=== PATIENT | female | born 1970 | race American Indian/Alaskan Native ===

== ENCOUNTER 2020-04-03 11:54 | Emergency (ER) | payer OTHER ==
[2020-04-03 12:01] VITALS: BP 165/84
[2020-04-03] MEDS ORDERED: valACYclovir 500 MG TAB PO ONE (13:26)
[2020-04-03] MEDS ORDERED: FLUORESCEIN 1 MG STRIP OP ONE (13:26)
[2020-04-03] MEDS ORDERED: predniSONE 20 MG TAB PO ONE (13:26)
[2020-04-03] MEDS ORDERED: TETRACAINE 0.5% OPHTH SOLN 4ML OU STA (13:27)
--- NOTE | 2020-04-03 13:32 | Emergency Department Report ---
ED Eye Problem HPI - General Chief complaint: Eye Problems Stated complaint: ALLERGY REACTION/WHEEZING Time Seen by Provider: 04/03/20 13:09 Source: patient Mode of arrival: Ambulatory Limitations: No Limitations - History of Present Illness Initial comments: 50 yr old female with a past medical history of asthma, renal failure on hemodialysis 3 days a week, and anemia presents to the ER today complaining of burning rash to her left forehead and around her eye as well is left eyeball redness. Patient states that her symptoms started with a rash to her left forehead about 2 days ago, since then it has gradually gotten worse and now involves her eye. She reports associated mild swelling to her left forehead and upper eyelid. She reports intermittent mild clear drainage from the eye but denies any mucopurulent drainage. She reports mild blurry vision to left eye (she only wear readers as needed ). She denies any photophobia, or eyeball pain or pain with movement of eye. She states she was concerned she was having allergic reaction to the iron infusion she had this morning. She denies any f/c or any other symptoms at this time. chief complaint: eye redness, other (Rash to forhead/around left eye) -: Sudden (2 days ago ) - Related Data Previous Rx's Medication Instructions Recorded Last Taken Type Ganciclovir [Zirgan 0.15%] 1 drop OP 5XD #10 gel..gram. 04/03/20 Unknown Rx Valacyclovir HCl [Valtrex] 1,000 mg PO TID #21 tablet 04/03/20 Unknown Rx predniSONE [Deltasone] 50 mg PO QDAY 4 Days #4 tab 04/03/20 Unknown Rx Allergies Allergy/AdvReac Type Severity Reaction Status Date / Time No Known Allergies Allergy Unverified 04/03/20 11:59 ED Review of Systems ROS: Stated complaint: ALLERGY REACTION/WHEEZING Other details as noted in HPI Comment: All other systems reviewed and negative Constitutional: chills Eyes: eye discharge, vision change, other (Left periorbital rash and swelling) ENT: denies: ear pain Respiratory: denies: cough, shortness of breath, wheezing Cardiovascular: denies: chest pain, palpitations Gastrointestinal: denies: abdominal pain, nausea, diarrhea Skin: rash, lesions Neurological: denies: headache, weakness, paresthesias Psychiatric: denies: anxiety, depression ED Past Medical Hx - Past Medical History Previous Medical History?: Yes Hx Renal Disease: Yes Additional medical history: Breast CA - Surgical History Past Surgical History?: Yes Additional Surgical History: Double mastectomy - Social History Smoking Status: Never Smoker Substance Use Type: None - Medications Home Medications: Home Medications Medication Instructions Recorded Confirmed Last Taken Type Ganciclovir [Zirgan 0.15%] 1 drop OP 5XD #10 gel..gram. 04/03/20 Unknown Rx Valacyclovir HCl [Valtrex] 1,000 mg PO TID #21 tablet 04/03/20 Unknown Rx predniSONE [Deltasone] 50 mg PO QDAY 4 Days #4 tab 04/03/20 Unknown Rx ED Physical Exam - General Limitations: No Limitations General appearance: alert, in no apparent distress - Head Head exam: Present: atraumatic, normocephalic, normal inspection - Eye Eye exam: Present: PERRL, EOMI, conjunctival injection (Left), other (mild swelling to left eyelid/suprarobital area secondary to herpetic zoster rash thats extending from left forehead; No signs of cellulitis.). Absent: periorbital tenderness Pupils: Present: normal accommodation, other (Vargas lamp --fluorescein exam - left eye - 2 tiny punctate areas noted at 12 oclock of cornea; No hyphema, hemorrage; no cell flare) - Expanded Eye Exam Expanded Sclera/Conjunctival: Injection: Left Posterior chamber: Deferred: Left Visual acuity (R) = 20/: 20 Visual acuity (L) = 20/: 25 With correction: No - Neck Neck exam: Present: normal inspection. Absent: meningismus - Respiratory Respiratory exam: Absent: respiratory distress - Cardiovascular Cardiovascular Exam: Present: regular rate - Neurological Exam Neurological exam: Present: alert, oriented X3, CN II-XII intact - Skin Skin exam: Present: other (versicular rash noted left forehead, bridge of nose and upper lid along V1 dermatome; no rash to tip of nose ) ED Course Vital Signs 04/03/20 12:00 Temperature 99.6 F Pulse Rate 84 Respiratory 18 Rate Blood Pressure 165/84 O2 Sat by Pulse 100 Oximetry ED Medical Decision Making - Medical Decision Making 1410 -- Pt with shingles rash to left forehead along V1 dermatome involving left upper lids/bridge of nose (nothing on tip of nose) and there is concern for left cornea involved given vargas lamp exam. Discussed case with Dr Sexton (ophthamologist), he recommends valtrex 1000mg TID and Zirgen eye drops 5x per day and to have pt f.u in office monday in office. Discussed diagnosis, tx plan and ophthamologist recommendations with patient. She understands to f/u monday. Pt stable at time of d/c. Critical care attestation.: If time is entered above; I have spent that time in minutes in the direct care of this critically ill patient, excluding procedure time. ED Disposition Clinical Impression: Herpes zoster, Herpes zoster conjunctivitis Disposition: TO HOME OR SELFCARE Is pt being admited?: No Does the pt Need Aspirin: No Condition: Stable Instructions: Herpes Zoster (ED), Keratitis (ED) Additional Instructions: It is very important that you take medications as prescribed. It is important to follow up with Dr Sexton on monday. Return to ED if worse. Prescriptions: predniSONE [Deltasone] 50 mg PO QDAY 4 Days #4 tab Valacyclovir HCl [Valtrex] 1,000 mg PO TID #21 tablet Ganciclovir [Zirgan 0.15%] 1 drop OP 5XD #10 gel..gram. Referrals: PRIMARY CARE, [Primary Care Provider] - 3-5 Days CASPER SEXTON MD [Staff Physician] - 04/06/20 Time of Disposition: 14:16
== END 2020-04-03 14:50 | disposition home or self-care (01) ==
LOC: ED 11:54
DX: B02.31 Zoster conjunctivitis (principal); J45.909 Unspecified asthma, uncomplicated; N18.6 End stage renal disease; Z98.890 Other specified postprocedural states; Z79.899 Other long term (current) drug therapy; Z99.2 Dependence on renal dialysis
CPT/HCPCS: 99283; J7512

== ENCOUNTER 2020-09-03 19:00 | Emergency (ER) | payer SELFPAY | END 2020-09-03 21:25 | disposition left against medical advice (07) | LOC: ED 19:00 | DX: R06.02 Shortness of breath (principal); Z53.21 Procedure and treatment not carried out due to patient leaving prior to being seen by health care provider ==

== ENCOUNTER 2021-02-25 08:00 | Inpatient (IN) | payer OTHER, MEDICARE ==
[2021-02-25] MEDS ORDERED: ACETAMINOPHEN 500 MG TAB PO ONE ×2 (12:19→20:15)
--- NOTE | 2021-02-25 12:38 | Emergency Department Report ---
HPI - General Chief Complaint: Fall Time Seen by Provider: 02/25/21 11:57 - HPI HPI: 50-year-old female with history of breast cancer and ESRD on HD / presents complaining primarily of left knee pain since she suffered a fall down her stairs last night. The patient states that she was at the top of her steps when she lost her balance going down them and tumbled down one flight of stairs. She denies any significant trauma to her head and denies losing consciousness. She experienced immediate pain in her left knee and was unable to bear weight. She applied ice and has been taking Tylenol for the pain. However, today she was still unable to bear weight and so she decided to come in for further evaluation. The swelling has decreased from yesterday but is still significantly swollen according to her. Other than the left knee swelling and pain, she has pain in her right third and fourth toes. She denies any pain or injury to the head, neck, back, chest, arms, or anywhere else. She denies any headache, vision change, back pain, chest pain, shortness of breath, abdominal pain, nausea/vomiting, focal weakness, sensory changes, or any other complaints. Her last dialysis session was on Monday and she did not go today because she decided to come to the emergency department. ED Past Medical Hx - Past Medical History Previous Medical History?: Yes Hx Renal Disease: Yes (HD on ) Additional medical history: Breast CA - Surgical History Past Surgical History?: Yes Additional Surgical History: Double mastectomy - Social History Smoking Status: Never Smoker Substance Use Type: None - Medications Home Medications: Home Medications Medication Instructions Recorded Confirmed Last Taken Type Ganciclovir [Zirgan 0.15%] 1 drop OP 5XD #10 gel..gram. 04/03/20 02/26/21 02/16/21 Rx Valacyclovir HCl [Valtrex] 1,000 mg PO TID #21 tablet 04/03/20 02/26/21 02/17/21 Rx predniSONE [Deltasone] 50 mg PO QDAY 4 Days #4 tab 04/03/20 02/26/21 02/23/21 Rx ED Review of Systems ROS: Stated complaint: FALL/LT FOOT INJURY Other details as noted in HPI Constitutional: denies: chills, fever Eyes: denies: eye pain, vision change ENT: denies: throat pain, congestion Respiratory: denies: cough, shortness of breath Cardiovascular: denies: chest pain, palpitations, edema, syncope Gastrointestinal: denies: abdominal pain, nausea, vomiting Musculoskeletal: joint swelling. denies: back pain, myalgia Skin: denies: rash Neurological: denies: headache, weakness, numbness, paresthesias, confusion Physical Exam - Physical Exam Vital Signs: Vital Signs 02/25/21 09:20 Temperature 98.7 F Pulse Rate 79 Respiratory 15 Rate Blood Pressure 127/71 [Right] O2 Sat by Pulse 100 Oximetry Physical Exam: GENERAL: Well developed and well nourished. No acute distress HEENT: Normocephalic. No obvious signs of trauma. Moist mucous membranes. EYES: Extraocular movements are intact. Pupils are equal round and reactive to light bilaterally NECK: Supple. Trachea is midline. FROM is intact. No mid-spinal tenderness LUNGS: Nonlabored breathing. Equal chest rise bilaterally. Clear to auscultation bilaterally. HEART/CARDIOVASCULAR: Regular rate and rhythm. No murmurs or rubs. VASCULAR: 2+ peripheral pulses. Cap refill < 2 seconds ABDOMEN: Abdomen is soft and nondistended. There is no significant tenderness, guarding or rebound. SKIN: Skin is warm and dry NEURO: Patient is awake, alert, and oriented. manager helpdesk II-XII grossly intact. No focal deficits. Normal motor and sensory exam throughout (although strangth at knee cannot be assessed due to pain, she has normal strength distally). Normal speech. MUSCULOSKELETAL: There is obvious swelling over the left knee which obscures boundaries of the patella. There is no significant varus/valgus or anterior/posterior laxity. Unable to assess range of motion due to significant pain. There is no tenderness of the hips, chest wall, proximal femurs, tib- fib's, ankles, or feet with the exception of tenderness of the right third and fourth toes. Otherwise no tenderness and normal range of motion throughout. BACK/SPINE: No midline tenderness or step-offs of the C/T/L spine. No costovertebral angle tenderness. ED Course Vital Signs 02/25/21 09:20 Temperature 98.7 F Pulse Rate 79 Respiratory 15 Rate Blood Pressure 127/71 [Right] O2 Sat by Pulse 100 Oximetry ED Medical Decision Making - Lab Data Result diagrams: 02/25/21 15:05 02/25/21 15:05 Lab Results 02/25/21 02/25/21 02/25/21 Range/Units 15:05 15:05 15:05 WBC 8.6 (4.5-11.0) K/mm3 RBC 3.41 L (3.65-5.03) M/mm3 Hgb 10.3 (10.1-14.3) gm/dl Hct 32.4 (30.3-42.9) % MCV 95 (79-97) fl MCH 30 (28-32) pg MCHC 32 (30-34) % RDW 16.2 H (13.2-15.2) % Plt Count 129 L (140-440) K/mm3 Lymph % (Auto) 19.0 (13.4-35.0) % [place] % (Auto) 12.8 H (0.0-7.3) % Eos % (Auto) 4.0 (0.0-4.3) % Baso % (Auto) 0.5 (0.0-1.8) % Lymph # (Auto) 1.6 (1.2-5.4) K/mm3 [place] # (Auto) 1.1 H (0.0-0.8) K/mm3 Eos # (Auto) 0.3 (0.0-0.4) K/mm3 Baso # (Auto) 0.0 (0.0-0.1) K/mm3 Seg Neutrophils % 63.7 (40.0-70.0) % Seg Neutrophils # 5.4 (1.8-7.7) K/mm3 PT 14.2 (12.2-14.9) Sec. INR 1.05 (0.87-1.13) APTT 25.7 (24.2-36.6) Sec. Sodium 141 (137-145) mmol/L Potassium 5.9 H (3.6-5.0) mmol/L Chloride 101.7 (98-107) mmol/L Carbon Dioxide 28 (22-30) mmol/L Anion Gap 17 mmol/L BUN 63 H (7-17) mg/dL Creatinine 11.8 H (0.6-1.2) mg/dL Estimated GFR 4 ml/min BUN/Creatinine Ratio 5 % Glucose 90 (65-100) mg/dL Calcium 9.6 (8.4-10.2) mg/dL Total Bilirubin 0.40 (0.1-1.2) mg/dL Direct Bilirubin < 0.2 (0-0.2) mg/dL Indirect Bilirubin 0.2 mg/dL AST 18 (5-40) units/L ALT 11 (7-56) units/L Alkaline Phosphatase 142 H (35-129) units/L Total Protein 7.3 (6.3-8.2) g/dL Albumin 4.1 (3.9-5) g/dL Albumin/Globulin Ratio 1.3 % - EKG Data -: EKG Interpreted by Ct - EKG Data 02/25/21 20:54 Normal sinus rhythm. Normal axis. First-degree AV block with prolonged MO interval. Otherwise normal intervals. No ectopy. No significant ST segment or T wave abnormalities. No peaked T waves. - Radiology Data XR tibia fibula 2V LT INDICATION / CLINICAL INFORMATION: trauma. COMPARISON: None available. FINDINGS: BONES/JOINT(S): No acute fracture or subluxation. No significant degenerative changes. SOFT TISSUES: No significant abnormality. ADDITIONAL FINDINGS: None. Signer Name: Edvin Suárez MD Signed: 02/25/2021 2:40 PM Workstation Name: [id number] XR knee 3V LT INDICATION / CLINICAL INFORMATION: trauma. COMPARISON: None available. FINDINGS: BONES/JOINT(S): There is a large joint effusion. There is a questionable nondisplaced fracture of the lateral aspect of lateral tibial plateau only well seen on the oblique projection. SOFT TISSUES: No significant abnormality. ADDITIONAL FINDINGS: None. Recommendation: If the patient is unable to bear weight, further evaluation with CT or MRI of the knee is recommended. Signer Name: Edvin Suárez MD Signed: 02/25/2021 2:41 PM Workstation Name: [id number] XR hip 2-3V LT INDICATION / CLINICAL INFORMATION: trauma. COMPARISON: None available. FINDINGS: BONES/JOINT(S): No acute fracture or subluxation. No significant degenerative changes. SOFT TISSUES: No significant abnormality. ADDITIONAL FINDINGS: None. Signer Name: Edvin Suárez MD Signed: 02/25/2021 2:36 PM Workstation Name: [id number] XR foot 2V RT INDICATION / CLINICAL INFORMATION: trauma. COMPARISON: None available. FINDINGS: BONES/JOINT(S): No acute fracture or subluxation. Mild DJD in the first MTP joint. SOFT TISSUES: No significant abnormality. ADDITIONAL FINDINGS: None. Signer Name: Edvin Suárez MD Signed: 02/25/2021 2:41 PM Workstation Name: [id number] XR femur 2+V LT INDICATION / CLINICAL INFORMATION: trauma. COMPARISON: None available. FINDINGS: BONES/JOINT(S): No acute fracture or subluxation. No sig nificant degenerative changes. SOFT TISSUES: No significant abnormality. ADDITIONAL FINDINGS: None. Signer Name: Edvin Suárez MD Signed: 02/25/2021 2:37 PM Workstation Name: [id number] CT lower extremity LT wo con INDICATION: possible tibilal plateau fracture on x-ray. TECHNIQUE: All CT scans at this location are performed using the following dose modulation technique: Automated exposure control. COMPARISON: None available. FINDINGS: There is a minimally displaced fracture through the posterior lateral tibial plateau. In addition, there is fracture involving the tibial spine (intercondylar eminence) which is mildly comminuted. No additional fractures are seen. There is a lipohemarthrosis. There is mild subcutaneous edema. There is mild tricompartmental degenerative change. IMPRESSION: 1. Proximal tibial fractures as above. There is associated lipohemarthrosis. This fracture pattern could be seen in the setting of ACL avulsion injury. 2. Soft tissue swelling medially is concerning for MCL injury. Signer Name: Eliecer Leyva MD Signed: 02/25/2021 5:46 PM Workstation Name: [id number] - Medical Decision Making 50-year-old female with ESRD on HD / presents complaining of left knee pain and inability to bear weight on the left lower extremity after a trip and fall down a flight of stairs. Patient did not hit her head or lose consciousness. She had immediate pain and swelling to her left knee and was unable to bear weight. She applied ice and the swelling decreased but is still unable to bear weight so she decided to come in today. She missed her dialysis session today to come to the emergency room. she is afebrile and with normal vital signs. She is in no acute distress. There are no signs of head trauma. She has no mid sp inal tenderness of the C/T/L-spine. She has a nonfocal neurologic exam. Musculoskeletal exam is significant for significant swelling over the left knee and inability to range or bear weight at the knee due to pain. Neurovascularly intact distally. She also has tenderness of the right third and fourth toes. We will go ahead and send basic labs in case the patient needs to get dialyzed here. We will also obtain plain film x-rays of the left hip, left femur, left knee, left tib-fib as well as the right foot. We will give Tylenol for pain and reassess. The patient was offered something stronger for pain but refused. Repeat assessment at 2:38 PM, the patient is sleeping in the bed. When I came back shortly after to check on her she was awake and stated that her pain is controlled and she does not want any more pain medication. X-ray of the right foot reveals no obvious fractures. X-rays of the left hip, femur, and tib-fib reveal no acute abnormalities. However, on the x-ray of the knee there is concern for a left lateral tibial plateau fracture. CT is recommended for further elucidation which I have ordered. Knee immobilizer has been ordered. The patient's labs have returned and reveal no significant leukocytosis or anemia. However, she is noted to have creatinine of 11.8, BUN of 63, and potassium of 5.9. Given that the patient missed her dialysis I will place a ca ll to the on-call frame opener. At 5:30 PM I spoke with Dr. Nicholas over the phone regarding the case. We discussed details including the patient's elevated potassium and he recommended giving Kayexalate with the plan to have her dialyzed in the morning. While awaiting the results of the CT scan, given that the patient has now been in the emergency department for 10 hours, she is unable to bear weight, likely has a fracture, and will require dialysis given her elevated potassium, I spoke with him regarding admission. He accepts the patient for admission understands that he will need to follow-up the CT scan and consult orthopedic surgery. He also says that he will take care of arranging her dialysis. Dr. Davis has assumed care. Critical Care Time: Yes Critical care time in (mins) excluding proc time.: 35 Critical care attestation.: If time is entered above; I have spent that time in minutes in the direct care of this critically ill patient, excluding procedure time. Critical care time was spent in the assessment/evaluation, work-up, and management of complex fracture as well as significant electrolyte abnormalities including elevated potassium requiring administration of Kayexalate, as well as consultation with multiple specialists and frequent reevaluation and assessment ED Disposition Clinical Impression: Left medial tibial plateau fracture, ESRD (end stage renal disease), Hyperkalemia, Fracture of left tibial spine, Hemarthrosis Disposition: OP ADMIT IP TO THIS HOSP Is pt being admited?: Yes Condition: Stable
[2021-02-25 15:31] LABS: Basophils % (Auto) 0.5 % (0.0-1.8); Eosinophils # (Auto) 0.3 K/mm3 (0.0-0.4); Hematocrit 32.4 % (30.3-42.9); Hemoglobin 10.3 gm/dl (10.1-14.3); Lymphocytes # (Auto) 1.6 K/mm3 (1.2-5.4); Mean Corpuscular HGB Conc 32 % (30-34); Mean Corpuscular Volume 95 fl (79-97); Monocytes # (Auto) 1.1 K/mm3 (0.0-0.8); Monocytes % (Auto) 12.8 % (0.0-7.3); Platelet Count 129 K/mm3 (140-440); Red Blood Count 3.41 M/mm3 (3.65-5.03); Red Cell Distribution Width 16.2 % (13.2-15.2)
[2021-02-25 15:39] LABS: INR 1.05 (0.87-1.13)
[2021-02-25 15:40] LABS: Partial Thromboplastin Time 25.7 Sec. (24.2-36.6)
--- NOTE | 2021-02-25 15:41 | XRay Report ---
XR femur 2+V LT INDICATION / CLINICAL INFORMATION: trauma. COMPARISON: None available. FINDINGS: BONES/JOINT(S): No acute fracture or subluxation. No significant degenerative changes. SOFT TISSUES: No significant abnormality. ADDITIONAL FINDINGS: None. Signer Name: Edvin Suárez MD Signed: 02/25/2021 3:37 PM Workstation Name: [id number]
--- NOTE | 2021-02-25 15:41 | XRay Report ---
XR hip 2-3V LT INDICATION / CLINICAL INFORMATION: trauma. COMPARISON: None available. FINDINGS: BONES/JOINT(S): No acute fracture or subluxation. No significant degenerative changes. SOFT TISSUES: No significant abnormality. ADDITIONAL FINDINGS: None. Signer Name: Edvin Suárez MD Signed: 02/25/2021 3:36 PM Workstation Name: [id number]
--- NOTE | 2021-02-25 15:44 | XRay Report ---
XR tibia fibula 2V LT INDICATION / CLINICAL INFORMATION: trauma. COMPARISON: None available. FINDINGS: BONES/JOINT(S): No acute fracture or subluxation. No significant degenerative changes. SOFT TISSUES: No significant abnormality. ADDITIONAL FINDINGS: None. Signer Name: Edvin Suárez MD Signed: 02/25/2021 3:40 PM Workstation Name: [id number]
--- NOTE | 2021-02-25 15:45 | XRay Report ---
XR foot 2V RT INDICATION / CLINICAL INFORMATION: trauma. COMPARISON: None available. FINDINGS: BONES/JOINT(S): No acute fracture or subluxation. Mild DJD in the first MTP joint. SOFT TISSUES: No significant abnormality. ADDITIONAL FINDINGS: None. Signer Name: Edvin Suárez MD Signed: 02/25/2021 3:41 PM Workstation Name: [id number]
--- NOTE | 2021-02-25 15:45 | XRay Report ---
XR knee 3V LT INDICATION / CLINICAL INFORMATION: trauma. COMPARISON: None available. FINDINGS: BONES/JOINT(S): There is a large joint effusion. There is a questionable nondisplaced fracture of the lateral aspect of lateral tibial plateau only well seen on the oblique projection. SOFT TISSUES: No significant abnormality. ADDITIONAL FINDINGS: None. Recommendation: If the patient is unable to bear weight, further evaluation with CT or MRI of the kne e is recommended. Signer Name: Edvin Suárez MD Signed: 02/25/2021 3:41 PM Workstation Name: [id number]
[2021-02-25 16:06] LABS: Alanine Aminotransferase 11 units/L (7-56); Albumin 4.1 g/dL (3.9-5); Blood Urea Nitrogen 63 mg/dL (7-17); Calcium 9.6 mg/dL (8.4-10.2); Hemolysis Index 6
[2021-02-25 16:08] LABS: BUN/Creatinine Ratio 5; Bilirubin,Direct < 0.2 mg/dL (0-0.2)
[2021-02-25] MEDS ORDERED: SODIUM POLYSTYRENE 15 GM/60 ML ORAL LIQD PO ONE (17:37)
--- NOTE | 2021-02-25 18:50 | Cat Scan Report ---
CT lower extremity LT wo con INDICATION: possible tibilal plateau fracture on x-ray. TECHNIQUE: All CT scans at this location are performed using the following dose modulation technique: Automated exposure control. COMPARISON: None available. FINDINGS: There is a minimally displaced fracture through the posterior lateral tibial plateau. In addition, th ere is fracture involving the tibial spine (intercondylar eminence) which is mildly comminuted. No ad ditional fractures are seen. There is a lipohemarthrosis. There is mild subcutaneous edema. There is mild tricompartmental degenerative change. IMPRESSION: 1. Proximal tibial fractures as above. There is associated lipohemarthrosis. This fracture pattern co uld be seen in the setting of ACL avulsion injury. 2. Soft tissue swelling medially is concerning for MCL injury. Signer Name: Eliecer Leyva MD Signed: 02/25/2021 6:46 PM Workstation Name: [id number]
--- NOTE | 2021-02-25 23:10 | History and Physical Report ---
History of Present Illness Date of examination: 02/25/21 Date of admission: 02/25/21 18:23 Chief complaint: Severe left knee pain since yesterday History of present illness: 50-year-old female with history of end-stage renal disease on hemodialysis Monday and Saturdays had a fall last night while getting down the stairs. She fell about 10 stairs. Patient notes severe left knee pain and swelling. Pain is about 8 on a scale of 1-10. Decreased range of motion. No head concussion. No loss of consciousness. No shortness of breath. No fever or chills. Patient also has a history of breast cancer and bilateral mastectomy. - Past Medical History Previous Medical History?: Yes Hx Renal Disease: Yes (HD on ) Additional medical history: Breast CA - Surgical History Past Surgical History?: Yes Additional Surgical History: Double mastectomy - Social History Smoking Status: Never Smoker Substance Use Type: None - Medications Home Medications: Home Medications Medication Instructions Recorded Confirmed Last Taken Type Ganciclovir [Zirgan 0.15%] 1 drop OP 5XD #10 gel..gram. 04/03/20 Unknown Rx Valacyclovir HCl [Valtrex] 1,000 mg PO TID #21 tablet 04/03/20 Unknown Rx predniSONE [Deltasone] 50 mg PO QDAY 4 Days #4 tab 04/03/20 Unknown Rx Review of Systems ROS: Stated complaint: FALL/LT FOOT INJURY Other details as noted in HPI Constitutional: denies: chills, fever Eyes: denies: eye pain, vision change ENT: denies: throat pain, congestion Respiratory: denies: cough, shortness of breath Cardiovascular: denies: chest pain, palpitations, edema, syncope Gastrointestinal: denies: abdominal pain, nausea, vomiting Musculoskeletal: joint swelling. denies: back pain, myalgia Skin: denies: rash Neurological: denies: headache, weakness, numbness, paresthesias, confusion Medications and Allergies Allergies Allergy/AdvReac Type Severity Reaction Status Date / Time No Known Allergies Allergy Unverified 04/03/20 11:59 Home Medications Medication Instructions Recorded Confirmed Last Taken Type Ganciclovir [Zirgan 0.15%] 1 drop OP 5XD #10 gel..gram. 04/03/20 02/26/21 02/16/21 Rx Valacyclovir HCl [Valtrex] 1,000 mg PO TID #21 tablet 04/03/20 02/26/21 02/17/21 Rx predniSONE [Deltasone] 50 mg PO QDAY 4 Days #4 tab 04/03/20 02/26/21 02/23/21 Rx Exam - Constitutional Vitals: Temp Pulse Resp BP Pulse Ox 98.7 F 69 16 135/68 99 02/25/21 22:15 02/25/21 22:15 02/25/21 22:15 02/25/21 22:15 02/25/21 22:15 General appearance: Present: no acute distress, well-nourished - EENT Eyes: Present: PERRL ENT: hearing intact, clear oral mucosa - Neck Neck: Present: supple, normal ROM - Respiratory Respiratory effort: normal Respiratory: bilateral: CTA - Cardiovascular Heart rate: 78 Rhythm: regular Heart Sounds: Present: S1 & S2. Absent: rub, click - Extremities Extremities: pulses symmetrical, No edema, abnormal (Left knee swollen and decreased range of motion) Extremity abnormal: other (Left knee swollen and decreased range of motion) Peripheral Pulses: within normal limits - Abdominal General gastrointestinal: Present: soft, non-tender, non-distended, normal bowel sounds Female genitourinary: Present: normal - Integumentary Integumentary: Present: clear, warm, dry - Musculoskeletal Musculoskeletal: gait normal, strength equal bilaterally - Psychiatric Psychiatric: appropriate mood/affect, intact judgment & insight - Neurologic Neurologic: CNII-XII intact, moves all extremities Results - Labs CBC & Chem 7: 02/26/21 07:22 02/26/21 07:22 Labs: Laboratory Last Values WBC 8.6 K/mm3 (4.5-11.0) 02/25/21 15:05 RBC 3.41 M/mm3 (3.65-5.03) L 02/25/21 15:05 Hgb 10.3 gm/dl (10.1-14.3) 02/25/21 15:05 Hct 32.4 % (30.3-42.9) 02/25/21 15:05 MCV 95 fl (79-97) 02/25/21 15:05 MCH 30 pg (28-32) 02/25/21 15:05 MCHC 32 % (30-34) 02/25/21 15:05 RDW 16.2 % (13.2-15.2) H 02/25/21 15:05 Plt Count 129 K/mm3 (140-440) L 02/25/21 15:05 Lymph % (Auto) 19.0 % (13.4-35.0) 02/25/21 15:05 [place] % (Auto) 12.8 % (0.0-7.3) H 02/25/21 15:05 Eos % (Auto) 4.0 % (0.0-4.3) 02/25/21 15:05 Baso % (Auto) 0.5 % (0.0-1.8) 02/25/21 15:05 Lymph # (Auto) 1.6 K/mm3 (1.2-5.4) 02/25/21 15:05 [place] # (Auto) 1.1 K/mm3 (0.0-0.8) H 02/25/21 15:05 Eos # (Auto) 0.3 K/mm3 (0.0-0.4) 02/25/21 15:05 Baso # (Auto) 0.0 K/mm3 (0.0-0.1) 02/25/21 15:05 Seg Neutrophils % 63.7 % (40.0-70.0) 02/25/21 15:05 Seg Neutrophils # 5.4 K/mm3 (1.8-7.7) 02/25/21 15:05 PT 14.2 Sec. (12.2-14.9) 02/25/21 15:05 INR 1.05 (0.87-1.13) 02/25/21 15:05 APTT 25.7 Sec. (24.2-36.6) 02/25/21 15:05 Sodium 141 mmol/L (137-145) 02/25/21 15:05 Potassium 5.9 mmol/L (3.6-5.0) H 02/25/21 15:05 Chloride 101.7 mmol/L (98-107) 02/25/21 15:05 Carbon Dioxide 28 mmol/L (22-30) 02/25/21 15:05 Anion Gap 17 mmol/L 02/25/21 15:05 BUN 63 mg/dL (7-17) H 02/25/21 15:05 Creatinine 11.8 mg/dL (0.6-1.2) H 02/25/21 15:05 Estimated GFR 4 ml/min 02/25/21 15:05 BUN/Creatinine Ratio 5 % 02/25/21 15:05 Glucose 90 mg/dL (65-100) 02/25/21 15:05 Calcium 9.6 mg/dL (8.4-10.2) 02/25/21 15:05 Total Bilirubin 0.40 mg/dL (0.1-1.2) 02/25/21 15:05 Direct Bilirubin < 0.2 mg/dL (0-0.2) 02/25/21 15:05 Indirect Bilirubin 0.2 mg/dL 02/25/21 15:05 AST 18 units/L (5-40) 02/25/21 15:05 ALT 11 units/L (7-56) 02/25/21 15:05 Alkaline Phosphatase 142 units/L (35-129) H 02/25/21 15:05 Total Protein 7.3 g/dL (6.3-8.2) 02/25/21 15:05 Albumin 4.1 g/dL (3.9-5) 02/25/21 15:05 Albumin/Globulin Ratio 1.3 % 02/25/21 15:05 - Imaging and Cardiology Imaging and Cardiology: Lower extremities CAT scan Proximal tibial fracture. Minimally displaced fracture through the posterior lateral tibial plateau. In addition there is fracture involving the intercondylar eminence. Which is mildly comminuted. No additional fractures are seen. Foot x-ray femur x-ray and hip x-ray are normal. Knee x-ray there is a large joint effusion. There is a questionable nondisplace d fracture of the lateral aspect of the lateral tibial plateau only well seen on the oblique projection. CT scan knee is recommended. Assessment and Plan Advance Directives: Yes (Full code) VTE prophylaxis?: Chemical Plan of care discussed with patient/family: Yes - Patient Problems (1) Left medial tibial plateau fracture Current Visit: Yes Status: Acute Qualifiers: Encounter type: initial encounter Fracture type: closed Qualified Code(s): S82.132A - Displaced fracture of medial condyle of left tibia, initial encounter for closed fracture Plan to address problem: Orthopedics surgery consult requested by Dr. Salas (2) End stage renal disease on dialysis Current Visit: Yes Status: Chronic Plan to address problem: Continue hemodialysis as per schedule (3) Hyperkalemia Current Visit: Yes Status: Acute Plan to address problem: Hyperkalemia treated in the emergency room. Recheck potassium level. (4) DVT prophylaxis Current Visit: Yes Status: Acute Plan to address problem: On heparin and GI prophylaxis
[2021-02-25] MEDS ORDERED: ACETAMINOPHEN 325 MG TAB PO PRN (23:14)
[2021-02-25] MEDS ORDERED: METOCLOPRAMIDE 10 MG/2 ML INJ IV PRN ×2 (23:14→23:20)
[2021-02-25] MEDS ORDERED: ONDANSETRON 4 MG/2 ML INJ IV PRN (23:14)
[2021-02-25] MEDS ORDERED: CALCIUM GLUCONATE 2,000 MG in SODIUM CHLORIDE 0.9% 100 ML IV ONE (23:19)
[2021-02-26] MEDS: FAMOTIDINE 10 MG TAB PO SCH ×3 (00:17→22:06)
[2021-02-26] MEDS: oxyCODONE /ACETAMINOPHEN 5-325MG TAB PO PRN ×2 (04:51→22:06)
[2021-02-26 07:38] LABS: Basophils % (Auto) 0.6 % (0.0-1.8); Eosinophils # (Auto) 0.5 K/mm3 (0.0-0.4); Eosinophils % (Auto) 8.2 % (0.0-4.3); Hematocrit 30.1 % (30.3-42.9); Hemoglobin 9.7 gm/dl (10.1-14.3); Lymphocytes # (Auto) 1.8 K/mm3 (1.2-5.4); Lymphocytes % (Auto) 27.3 % (13.4-35.0); Mean Corpuscular HGB Conc 32 % (30-34); Mean Corpuscular Volume 94 fl (79-97); Monocytes # (Auto) 0.7 K/mm3 (0.0-0.8); Monocytes % (Auto) 10.6 % (0.0-7.3); Platelet Count 123 K/mm3 (140-440); Red Blood Count 3.21 M/mm3 (3.65-5.03); Red Cell Distribution Width 15.6 % (13.2-15.2)
[2021-02-26 07:56] LABS: Albumin 3.6 g/dL (3.9-5); Calcium 9.3 mg/dL (8.4-10.2)
--- NOTE | 2021-02-26 09:31 | Consultation ---
History of Present Illness - Reason for Consult Consult date: 02/26/21 end stage renal disease - History of Present Illness This is a 50 year-old woman with ESRD who presents for mechanical fall and subsequent injury Patient usually dialyzes at [facility] with Dr. Calderón. Last HD 02/23, missed 02/25 due to hospitalization. Denies any recent issues with HD, including dizziness, lightheadedness, cramping, chest pain on HD. Currently, patient denies any issues including dyspnea, edema, access issues, nausea, vomiting, headaches. Past History Past Medical History: cancer, ESRD Past Surgical History: mastectomy Social history: no significant social history Family history: no significant family history Medications and Allergies Allergies Allergy/AdvReac Type Severity Reaction Status Date / Time No Known Allergies Allergy Unverified 04/03/20 11:59 Home Medications Medication Instructions Recorded Confirmed Last Taken Type Ganciclovir [Zirgan 0.15%] 1 drop OP 5XD #10 gel..gram. 04/03/20 02/26/21 02/16/21 Rx Valacyclovir HCl [Valtrex] 1,000 mg PO TID #21 tablet 04/03/20 02/26/21 02/17/21 Rx predniSONE [Deltasone] 50 mg PO QDAY 4 Days #4 tab 04/03/20 02/26/21 02/23/21 Rx Active Meds: Active Medications Acetaminophen (Acetaminophen 325 Mg Tab) 650 mg PO Q4H PRN PRN Reason: Pain MILD(1-3)/Fever >100.5/GUNDERSON Last Admin: 02/26/21 01:36 Dose: 650 mg Documented by: Famotidine (Famotidine 10 Mg Tab) 10 mg PO BID NEY Last Admin: 02/26/21 00:17 Dose: 10 mg Documented by: Heparin Sodium (Porcine) (Heparin 5,000 Unit/1 Ml Vial) 5,000 unit SUB-Q Q12HR [facility] Hydromorphone HCl (Hydromorphone 1 Mg/1 Ml Inj) 0.5 mg IV Q3H PRN PRN Reason: Pain , Severe (7-10) Metoclopramide HCl (Metoclopramide 10 Mg/2 Ml Inj) 2.5 mg IV Q6H PRN PRN Reason: Nausea And Vomiting Ondansetron HCl (Ondansetron 4 Mg/2 Ml Inj) 4 mg IV Q3H PRN PRN Reason: Nausea And Vomiting Oxycodone/Acetaminophen (Oxycodone /Acetaminophen 5-325mg Tab) 1 tab PO Q6H PRN PRN Reason: Pain, Moderate (4-6) Last Admin: 02/26/21 04:51 Dose: 1 tab Documented by: Sodium Chloride (Sodium Chloride 0.9% 10 Ml Flush Syringe) 10 ml IV BID NEY Last Admin: 02/26/21 01:17 Dose: 10 ml Documented by: Sodium Chloride (Sodium Chloride 0.9% 10 Ml Flush Syringe) 10 ml IV PRN PRN PRN Reason: LINE FLUSH Review of Systems All systems: negative (as per HPI) Exam - Vital Signs Vital signs: Vital Signs Temp Pulse Resp BP Pulse Ox 98.7 F 79 15 127/71 100 02/25/21 09:20 02/25/21 09:20 02/25/21 09:20 02/25/21 09:20 02/25/21 09:20 - Physical Exam Narrative exam: Constitutional: no acute distress Head: NC/AT Neck: supple Lungs: clear to auscultation CV: RRR, no M/R/G Abdomen: soft, non-tender, bowel sounds present Back: nontender Extremities: no edema, pulses WNL Skin: intact Neuro: no focal deficits, alert and oriented x4 Results - Lab Results 02/26/21 07:22 02/26/21 07:22 Most recent lab results Calcium 9.3 mg/dL (8.4-10.2) 02/26/21 07:22 Assessment and Plan This is a 50 year old woman who presents with mechanical fall and left tibial fracture # ESRD: no indication for HD today per lytes, volume per exam; K medically managed overnight. Will plan for HD per outpatient // starting tomorrow - daily labs - renally dose meds - avoid nephrotoxins - renal diet - verbal consent obtained for HD # Anemia: last hemoglobin ~10 at goal for ESKD, no immediate needs for ESAs # HTN: UF as tolerated. BP at goal with euvolemia on exam # Secondary Hyperparathyroidism: continue home binders as needed # Tibial Fracture: ortho consulted
[2021-02-26] MEDS: HYDROmorphone 1 MG/1 ML INJ IV PRN ×2 (09:34→16:49)
[2021-02-26] MEDS: HEPARIN 5,000 UNIT/1 ML VIAL SUB-Q SCH ×2 (09:38→22:06)
[2021-02-26] MEDS ORDERED: SODIUM CHLORIDE 0.9% 100 ML IV PRN (10:00)
--- NOTE | 2021-02-26 10:18 | Electrocardiograph Report ---
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
--- NOTE | 2021-02-26 15:57 | Consultation ---
History of Present Illness - HPI Consult date: 02/26/21 Consult reason: fracture History of present illness: 50-year-old female with history of end-stage renal disease on hemodialysis Monday and Saturdays had a fall last 02/25/21 while getting down the stairs. She fell about 10 stairs. Patient notes severe left knee pain and swelling. Plain x-rays done in the ED were interpreted as questionable fracture line patient then underwent a CT scan which showed nondisplaced fractures of the proximal tibia Past History Past Medical History: cancer, ESRD Past Surgical History: mastectomy Social history: no significant social history Family history: no significant family history Medications and Allergies Allergies Allergy/AdvReac Type Severity Reaction Status Date / Time No Known Allergies Allergy Unverified 04/03/20 11:59 Home Medications Medication Instructions Recorded Confirmed Last Taken Type Ganciclovir [Zirgan 0.15%] 1 drop OP 5XD #10 gel..gram. 04/03/20 02/26/21 02/16/21 Rx Acetaminophen [Acetaminophen TAB] 650 mg PO Q4H PRN tablet 02/27/21 Unknown Rx oxyCODONE /ACETAMINOPHEN [Percocet 1 tab PO Q6H PRN tablet 02/27/21 Unknown Rx 5/325 mg] oxyCODONE /ACETAMINOPHEN [Percocet 1 tab PO Q6HR PRN #12 tab 02/27/21 Unknown Rx 5/325] Active Meds: Active Medications Acetaminophen (Acetaminophen 325 Mg Tab) 650 mg PO Q4H PRN PRN Reason: Pain MILD(1-3)/Fever >100.5/GUN[place]ERSON Last Admin: 02/26/21 01:36 Dose: 650 mg Documented by: Famotidine (Famotidine 10 Mg Tab) 10 mg PO BID [facility] Last Admin: 02/26/21 09:38 Dose: 10 mg Documented by: Heparin Sodium (Porcine) (Heparin 5,000 Unit/1 Ml Vial) 5,000 unit SUB-Q Q12HR [facility] Last Admin: 02/26/21 09:38 Dose: 5,000 unit Documented by: Hydromorphone HCl (Hydromorphone 1 Mg/1 Ml Inj) 0.5 mg IV Q3H PRN PRN Reason: Pain , Severe (7-10) Last Admin: 02/26/21 09:34 Dose: 0.5 mg Documented by: Sodium Chloride (Nacl 0.9%) 100 mls @ 999 mls/hr IV LON PRN PRN Reason: Hypotension Metoclopramide HCl (Metoclopramide 10 Mg/2 Ml Inj) 2.5 mg IV Q6H PRN PRN Reason: Nausea And Vomiting Ondansetron HCl (Ondansetron 4 Mg/2 Ml Inj) 4 mg IV Q3H PRN PRN Reason: Nausea And Vomiting Oxycodone/Acetaminophen (Oxycodone /Acetaminophen 5-325mg Tab) 1 tab PO Q6H PRN PRN Reason: Pain, Moderate (4-6) Last Admin: 02/26/21 04:51 Dose: 1 tab Documented by: Sodium Chloride (Sodium Chloride 0.9% 10 Ml Flush Syringe) 10 ml IV BID NEY Last Admin: 02/26/21 11:06 Dose: 10 ml Documented by: Sodium Chloride (Sodium Chloride 0.9% 10 Ml Flush Syringe) 10 ml IV PRN PRN PRN Reason: LINE FLUSH Physical Examination - Physical exam Narrative exam: On physical examination significant musculoskeletal findings relates to the left lower extremity here she is noted to have some mild swelling was tenderness over the proximal tibia there is no obvious deformity distal neurovascular status was intact Eyes: PERRL ENT: Positive: clear oral mucosa Respiratory effort: normal Respiratory: bilateral: CTA Rhythm: regular Heart Sounds: Positive: S1 & S2 General gastrointestinal: Positive: soft, non-tender, non-distended, normal bowel sounds Integumentary: clear, warm, dry Neurologic: Positive: CNII-XII intact, moves all extremities, gait normal. Negative: focal deficits Assessment and Plan Nondisplaced left tibial plateau fracture Recommend conservative management patient to be weightbearing as tolerated with assistance from walker
--- NOTE | 2021-02-26 17:20 | Progress Note ---
Hospitalist Physical - Constitutional Vitals: Temp Pulse Resp BP Pulse Ox 98.8 F 69 16 147/98 99 02/26/21 15:26 02/26/21 15:26 02/26/21 15:26 02/26/21 15:26 02/26/21 15:26 General appearance: Present: no acute distress, well-nourished Results - Labs CBC & Chem 7: 02/26/21 07:22 02/26/21 07:22 Labs: Laboratory Last Values WBC 6.5 K/mm3 (4.5-11.0) 02/26/21 07:22 RBC 3.21 M/mm3 (3.65-5.03) L 02/26/21 07:22 Hgb 9.7 gm/dl (10.1-14.3) L 02/26/21 07:22 Hct 30.1 % (30.3-42.9) L 02/26/21 07:22 MCV 94 fl (79-97) 02/26/21 07:22 MCH 30 pg (28-32) 02/26/21 07:22 MCHC 32 % (30-34) 02/26/21 07:22 RDW 15.6 % (13.2-15.2) H 02/26/21 07:22 Plt Count 123 K/mm3 (140-440) L 02/26/21 07:22 Lymph % (Auto) 27.3 % (13.4-35.0) 02/26/21 07:22 [place] % (Auto) 10.6 % (0.0-7.3) H 02/26/21 07:22 Eos % (Auto) 8.2 % (0.0-4.3) H 02/26/21 07:22 Baso % (Auto) 0.6 % (0.0-1.8) 02/26/21 07:22 Lymph # (Auto) 1.8 K/mm3 (1.2-5.4) 02/26/21 07:22 [place] # (Auto) 0.7 K/mm3 (0.0-0.8) 02/26/21 07:22 Eos # (Auto) 0.5 K/mm3 (0.0-0.4) H 02/26/21 07:22 Baso # (Auto) 0.0 K/mm3 (0.0-0.1) 02/26/21 07:22 Seg Neutrophils % 53.3 % (40.0-70.0) 02/26/21 07:22 Seg Neutrophils # 3.4 K/mm3 (1.8-7.7) 02/26/21 07:22 PT 14.2 Sec. (12.2-14.9) 02/25/21 15:05 INR 1.05 (0.87-1.13) 02/25/21 15:05 APTT 25.7 Sec. (24.2-36.6) 02/25/21 15:05 Sodium 142 mmol/L (137-145) 02/26/21 07:22 Potassium 5.0 mmol/L (3.6-5.0) 02/26/21 07:22 Chloride 100.8 mmol/L (98-107) 02/26/21 07:22 Carbon Dioxide 29 mmol/L (22-30) 02/26/21 07:22 Anion Gap 17 mmol/L 02/26/21 07:22 BUN 62 mg/dL (7-17) H 02/26/21 07:22 Creatinine 12.7 mg/dL (0.6-1.2) H 02/26/21 07:22 Estimated GFR 4 ml/min 02/26/21 07:22 BUN/Creatinine Ratio 5 % 02/26/21 07:22 Glucose 87 mg/dL (65-100) 02/26/21 07:22 Hemoglobin A1c 5.5 % (4-6) 02/26/21 07:22 Calcium 9.3 mg/dL (8.4-10.2) 02/26/21 07:22 Total Bilirubin 0.40 mg/dL (0.1-1.2) 02/26/21 07:22 Direct Bilirubin < 0.2 mg/dL (0-0.2) 02/25/21 15:05 Indirect Bilirubin 0.2 mg/dL 02/25/21 15:05 AST 15 units/L (5-40) 02/26/21 07:22 ALT 10 units/L (7-56) 02/26/21 07:22 Alkaline Phosphatase 126 units/L (35-129) 02/26/21 07:22 Total Protein 6.6 g/dL (6.3-8.2) 02/26/21 07:22 Albumin 3.6 g/dL (3.9-5) L 02/26/21 07:22 Albumin/Globulin Ratio 1.2 % 02/26/21 07:22 Active Medications - Current Medications Current Medications: Generic Name Dose Route Start Last Admin Trade Name Freq PRN Reason Stop Dose Admin Acetaminophen 650 mg 02/25/21 23:14 02/26/21 01:36 Acetaminophen 325 Mg Tab PO 650 mg Q4H PRN Administration Pain MILD(1-3)/Fever >100.5/GUNDERSON Famotidine 10 mg 02/25/21 23:45 02/26/21 09:38 Famotidine 10 Mg Tab PO 10 mg BID NEY Administration Heparin Sodium (Porcine) 5,000 unit 02/26/21 10:00 02/26/21 09:38 Heparin 5,000 Unit/1 Ml Vial SUB-Q 5,000 unit Q12HR NEY Administration Hydromorphone HCl 0.5 mg 02/25/21 23:14 02/26/21 16:49 Hydromorphone 1 Mg/1 Ml Inj IV 0.5 mg Q3H PRN Administration Pain , Severe (7-10) Sodium Chloride 100 mls @ 999 mls/hr 02/26/21 10:00 Nacl 0.9% IV LON PRN Hypotension Metoclopramide HCl 2.5 mg 02/25/21 23:20 Metoclopramide 10 Mg/2 Ml Inj IV Q6H PRN Nausea And Vomiting Ondansetron HCl 4 mg 02/25/21 23:14 Ondansetron 4 Mg/2 Ml Inj IV Q3H PRN Nausea And Vomiting Oxycodone/Acetaminophen 1 tab 02/25/21 23:14 02/26/21 04:51 Oxycodone /Acetaminophen 5-325mg Tab PO 1 tab Q6H PRN Administration Pain, Moderate (4-6) Sodium Chloride 10 ml 02/25/21 23:45 02/26/21 11:06 Sodium Chloride 0.9% 10 Ml Flush Syringe IV 10 ml BID NEY Administration Sodium Chloride 10 ml 02/25/21 23:14 Sodium Chloride 0.9% 10 Ml Flush Syringe IV PRN PRN LINE FLUSH
[2021-02-27] MEDS: oxyCODONE /ACETAMINOPHEN 5-325MG TAB PO PRN ×2 (07:14→18:14)
[2021-02-27 07:48] LABS: Hepatitis B Surface Antigen Non-Reactive (Negative); Hepatitis C Virus Antibody Non-Reactive (NonReactive)
--- NOTE | 2021-02-27 09:46 | Progress Note ---
Assessment and Plan This is a 50 year old woman who presents with mechanical fall and left tibial fracture # ESRD: continue HD per outpatient // starting today for clearance, volume - daily labs - renally dose meds - avoid nephrotoxins - renal diet - verbal consent obtained for HD # Anemia: last hemoglobin ~10 at goal for ESKD, no immediate needs for ESAs # HTN: UF as tolerated. BP at goal with euvolemia on exam # Secondary Hyperparathyroidism: continue home binders as needed # Tibial Fracture: ortho consulted, note input, no surgery plans noted Subjective Date of service: 02/27/21 Interval history: No new issues noted this AM, no acute events Objective - Exam Narrative Exam: Constitutional: no acute distress Head: NC/AT Neck: supple Lungs: clear to auscultation CV: RRR, no M/R/G Abdomen: soft, non-tender, bowel sounds present Back: nontender Extremities: no edema, pulses WNL Skin: intact Neuro: no focal deficits, alert and oriented x4 - Vital Signs Vital signs: Vital Signs - 12hr 02/26/21 02/27/21 02/27/21 23:26 03:41 07:44 Temperature 98.8 F 99.0 F 97.6 F Pulse Rate 77 71 73 Respiratory 16 16 16 Rate Blood Pressure 121/71 116/59 Blood Pressure 121/76 [Right] O2 Sat by Pulse 97 95 96 Oximetry - Lab 02/26/21 07:22 02/26/21 07:22 Most recent lab results Calcium 9.3 mg/dL (8.4-10.2) 02/26/21 07:22 Medications & Allergies - Medications Allergies/Adverse Reactions: Allergies No Known Allergies Allergy (Unverified 04/03/20 11:59) Home Medications: Home Medications Medication Instructions Recorded Confirmed Last Taken Type Ganciclovir [Zirgan 0.15%] 1 drop OP 5XD #10 gel..gram. 04/03/20 02/26/21 02/16/21 Rx Valacyclovir HCl [Valtrex] 1,000 mg PO TID #21 tablet 04/03/20 02/26/21 02/17/21 Rx predniSONE [Deltasone] 50 mg PO QDAY 4 Days #4 tab 04/03/20 02/26/21 02/23/21 Rx Active Medications: Generic Name Dose Route Start Last Admin Trade Name Freq PRN Reason Stop Dose Admin Acetaminophen 650 mg 02/25/21 23:14 02/26/21 01:36 Acetaminophen 325 Mg Tab PO 650 mg Q4H PRN Administration Pain MILD(1-3)/Fever >100.5/G[place]ERSON Famotidine 10 mg 02/25/21 23:45 02/26/21 22:06 Famotidine 10 Mg Tab PO 10 mg BID NEY Administration Heparin Sodium (Porcine) 5,000 unit 02/26/21 10:00 02/26/21 22:06 Heparin 5,000 Unit/1 Ml Vial SUB-Q 5,000 unit Q12HR NEY Administration Hydromorphone HCl 0.5 mg 02/25/21 23:14 02/26/21 16:49 Hydromorphone 1 Mg/1 Ml Inj IV 0.5 mg Q3H PRN Administration Pain , Severe (7-10) Sodium Chloride 100 mls @ 999 mls/hr 02/26/21 10:00 Nacl 0.9% IV LON PRN Hypotension Metoclopramide HCl 2.5 mg 02/25/21 23:20 Metoclopramide 10 Mg/2 Ml Inj IV Q6H PRN Nausea And Vomiting Ondansetron HCl 4 mg 02/25/21 23:14 Ondansetron 4 Mg/2 Ml Inj IV Q3H PRN Nausea And Vomiting Oxycodone/Acetaminophen 1 tab 02/25/21 23:14 02/27/21 07:14 Oxycodone /Acetaminophen 5-325mg Tab PO 1 tab Q6H PRN Administration Pain, Moderate (4-6) Sodium Chloride 10 ml 02/25/21 23:45 02/26/21 22:07 Sodium Chloride 0.9% 10 Ml Flush Syringe IV 10 ml BID NEY Administration Sodium Chloride 10 ml 02/25/21 23:14 Sodium Chloride 0.9% 10 Ml Flush Syringe IV PRN PRN LINE FLUSH
[2021-02-27] MEDS: FAMOTIDINE 10 MG TAB PO SCH (11:14)
[2021-02-27] MEDS: HEPARIN 5,000 UNIT/1 ML VIAL SUB-Q SCH (11:15)
[2021-02-27 15:37] VITALS: BP 122/72
--- NOTE | 2021-02-27 17:40 | Progress Note ---
Hospitalist Physical - Constitutional Vitals: Temp Pulse Resp BP Pulse Ox 97.2 F L 65 18 122/72 94 02/27/21 14:40 02/27/21 14:40 02/27/21 14:40 02/27/21 14:40 02/27/21 10:44 General appearance: Present: no acute distress, well-nourished Results - Labs CBC & Chem 7: 02/26/21 07:22 02/26/21 07:22 Labs: Laboratory Last Values WBC 6.5 K/mm3 (4.5-11.0) 02/26/21 07:22 RBC 3.21 M/mm3 (3.65-5.03) L 02/26/21 07:22 Hgb 9.7 gm/dl (10.1-14.3) L 02/26/21 07:22 Hct 30.1 % (30.3-42.9) L 02/26/21 07:22 MCV 94 fl (79-97) 02/26/21 07:22 MCH 30 pg (28-32) 02/26/21 07:22 MCHC 32 % (30-34) 02/26/21 07:22 RDW 15.6 % (13.2-15.2) H 02/26/21 07:22 Plt Count 123 K/mm3 (140-440) L 02/26/21 07:22 Lymph % (Auto) 27.3 % (13.4-35.0) 02/26/21 07:22 [place] % (Auto) 10.6 % (0.0-7.3) H 02/26/21 07:22 Eos % (Auto) 8.2 % (0.0-4.3) H 02/26/21 07:22 Baso % (Auto) 0.6 % (0.0-1.8) 02/26/21 07:22 Lymph # (Auto) 1.8 K/mm3 (1.2-5.4) 02/26/21 07:22 [place] # (Auto) 0.7 K/mm3 (0.0-0.8) 02/26/21 07:22 Eos # (Auto) 0.5 K/mm3 (0.0-0.4) H 02/26/21 07:22 Baso # (Auto) 0.0 K/mm3 (0.0-0.1) 02/26/21 07:22 Seg Neutrophils % 53.3 % (40.0-70.0) 02/26/21 07:22 Seg Neutrophils # 3.4 K/mm3 (1.8-7.7) 02/26/21 07:22 PT 14.2 Sec. (12.2-14.9) 02/25/21 15:05 INR 1.05 (0.87-1.13) 02/25/21 15:05 APTT 25.7 Sec. (24.2-36.6) 02/25/21 15:05 Sodium 142 mmol/L (137-145) 02/26/21 07:22 Potassium 5.0 mmol/L (3.6-5.0) 02/26/21 07:22 Chloride 100.8 mmol/L (98-107) 02/26/21 07:22 Carbon Dioxide 29 mmol/L (22-30) 02/26/21 07:22 Anion Gap 17 mmol/L 02/26/21 07:22 BUN 62 mg/dL (7-17) H 02/26/21 07:22 Creatinine 12.7 mg/dL (0.6-1.2) H 02/26/21 07:22 Estimated GFR 4 ml/min 02/26/21 07:22 BUN/Creatinine Ratio 5 % 02/26/21 07:22 Glucose 87 mg/dL (65-100) 02/26/21 07:22 Hemoglobin A1c 5.5 % (4-6) 02/26/21 07:22 Calcium 9.3 mg/dL (8.4-10.2) 02/26/21 07:22 Total Bilirubin 0.40 mg/dL (0.1-1.2) 02/26/21 07:22 Direct Bilirubin < 0.2 mg/dL (0-0.2) 02/25/21 15:05 Indirect Bilirubin 0.2 mg/dL 02/25/21 15:05 AST 15 units/L (5-40) 02/26/21 07:22 ALT 10 units/L (7-56) 02/26/21 07:22 Alkaline Phosphatase 126 units/L (35-129) 02/26/21 07:22 Total Protein 6.6 g/dL (6.3-8.2) 02/26/21 07:22 Albumin 3.6 g/dL (3.9-5) L 02/26/21 07:22 Albumin/Globulin Ratio 1.2 % 02/26/21 07:22 Hepatitis A IgM Ab Non-reactive (NonReactive) 02/27/21 04:43 Hep Bs Antigen Non-reactive (Negative) 02/27/21 04:43 Hep B Core IgM Ab Non-reactive (NonReactive) 02/27/21 04:43 Hepatitis C Antibody Non-reactive (NonReactive) 02/27/21 04:43 Hernandez/IV: Voiding Method Toilet Active Medications - Current Medications Current Medications: Generic Name Dose Route Start Last Admin Trade Name Freq PRN Reason Stop Dose Admin Acetaminophen 650 mg 02/25/21 23:14 02/26/21 01:36 Acetaminophen 325 Mg Tab PO 650 mg Q4H PRN Administration Pain MILD(1-3)/Fever >100.5/GUNDERSON Famotidine 10 mg 02/25/21 23:45 02/26/21 22:06 Famotidine 10 Mg Tab PO 10 mg BID NEY Administration Heparin Sodium (Porcine) 5,000 unit 02/26/21 10:00 02/26/21 22:06 Heparin 5,000 Unit/1 Ml Vial SUB-Q 5,000 unit Q12HR NEY Administration Hydromorphone HCl 0.5 mg 02/25/21 23:14 02/26/21 16:49 Hydromorphone 1 Mg/1 Ml Inj IV 0.5 mg Q3H PRN Administration Pain , Severe (7-10) Sodium Chloride 100 mls @ 999 mls/hr 02/26/21 10:00 Nacl 0.9% IV LON PRN Hypotension Metoclopramide HCl 2.5 mg 02/25/21 23:20 Metoclopramide 10 Mg/2 Ml Inj IV Q6H PRN Nausea And Vomiting Ondansetron HCl 4 mg 02/25/21 23:14 Ondansetron 4 Mg/2 Ml Inj IV Q3H PRN Nausea And Vomiting Oxycodone/Acetaminophen 1 tab 02/25/21 23:14 02/27/21 07:14 Oxycodone /Acetaminophen 5-325mg Tab PO 1 tab Q6H PRN Administration Pain, Moderate (4-6) Sodium Chloride 10 ml 02/25/21 23:45 02/26/21 22:07 Sodium Chloride 0.9% 10 Ml Flush Syringe IV 10 ml BID NEY Administration Sodium Chloride 10 ml 02/25/21 23:14 Sodium Chloride 0.9% 10 Ml Flush Syringe IV PRN PRN LINE FLUSH
--- NOTE | 2021-02-27 18:30 | Discharge Summary ---
Providers - Providers Date of Admission: 02/25/21 18:23 Attending physician: LINWOOD VILLANUEVA MD 02/25/21 23:25 Consult to Physician [CONS] Routine Comment: Consulting Provider: FRACISCO CLINE Physician Instructions: Reason For Exam: esrd 02/25/21 23:36 Consult to Physician [CONS] Routine Comment: Consulting Provider: JENNIFER MORROW Physician Instructions: Reason For Exam: Tibial fracture 02/26/21 15:57 Physical Therapy Evaluation and Treat [CONS] Routine Comment: Reason For Exam: Gait training, weightbearing as tolerated left low 02/26/21 17:02 Physical Therapy Evaluation and Treat [CONS] Routine Comment: for safe discharge tomorrow Reason For Exam: S/P fall,L knee injury/needs walker training Primary care physician: RED HAT ENGINEER Hospitalization Condition: Stable Exam - Constitutional Vitals: Temp Pulse Resp BP Pulse Ox 97.2 F L 65 18 122/72 94 02/27/21 14:40 02/27/21 14:40 02/27/21 14:40 02/27/21 14:40 02/27/21 10:44 Plan Activity: advance as tolerated Weight Bearing Status: Weight Bear as Tolerated Diet: renal Special Instructions: physical therapy (Physical activity as instructed by orthopedic doctor and the physical therapist) Durable Medical Equipment Needed Upon Discharge: Walker-Rolling Follow up with: PRIMARY CAREMD [Primary Care Provider] - 7 Days JENNIFER MORROW MD [Staff Physician] - 7 Days Prescriptions: oxyCODONE /ACETAMINOPHEN [Percocet 5/325] 1 tab PO Q6HR PRN #12 tab PRN Reason: Pain, Moderate (4-6)
== END 2021-02-27 20:30 | disposition home health service (06) | DRG 562 ==
LOC: ED 08:00 → 3A 18:23 → 3B-SURG 20:01
PROVIDERS: ADMIT Internal Medicine; ATTEND Internal Medicine
PROC: 5A1D70Z Performance of Urinary Filtration, Intermittent, Less than 6 Hours Per Day (ICD-10-PCS; principal; 2021-02-27)
DX: S82.145A Nondisplaced bicondylar fracture of left tibia, initial encounter for closed fracture (principal); N18.6 End stage renal disease; N25.81 Secondary hyperparathyroidism of renal origin; I12.0 Hypertensive chronic kidney disease with stage 5 chronic kidney disease or end stage renal disease; S82.135A Nondisplaced fracture of medial condyle of left tibia, initial encounter for closed fracture; E87.5 Hyperkalemia; Z99.2 Dependence on renal dialysis; Z85.3 Personal history of malignant neoplasm of breast; W10.9XXA Fall (on) (from) unspecified stairs and steps, initial encounter; Y93.89 Activity, other specified; Y92.89 Other specified places as the place of occurrence of the external cause; D64.9 Anemia, unspecified
CPT/HCPCS: 36415; 80048; 80053; 80074; 80076; 83036; 85025; 85610; 85730; 93005; G0378; J0610; J1170; J1644

== ENCOUNTER 2021-04-30 15:37 | Inpatient (IN) | payer MEDICARE, OTHER ==
[2021-04-30] MEDS ORDERED: ACETAMINOPHEN 500 MG TAB PO ONE (15:54)
--- NOTE | 2021-04-30 15:56 | Event Note ---
ED Screening Note Date of service: 04/30/21 Time: 15:55 ED Screening Note: 51-year-old -Hung[place] female presents to the emergency room reporting that she has been losing weight after having Covid. Patient states that she is continues to have diarrhea mild shortness of breath and cough. Patient states that she went to dialysis today but her dry weight was too low. Patient states that she tested positive for Covid on 22 April 2021. Patient has a history of end-stage renal disease and is currently on dialysis. This initial assessment/diagnostic orders/clinical plan/treatment(s) is/are subject to change based on patients health status, clinical progression and re- assessment by fellow clinical providers in the ED. Further treatment and workup at subsequent clinical providers discretion. Patient/guardian urged not to elope from the ED as their condition may be serious if not clinically assessed and managed. Initial orders include:
--- NOTE | 2021-04-30 16:19 | Emergency Department Report ---
HPI - General Chief Complaint: Dyspnea/Respdistress Time Seen by Provider: 04/30/21 16:04 - HPI HPI: This is a 51-year-old -[place] female presents to the emergency department from dialysis with complaint of nausea without vomiting, diarrhea, mild SOB and some wheezing, that has been going on since the patient was diagnosed with COVID-19 on 04/22/2021. The patient has recently been getting dialysis on Monday/Monday/Monday since being diagnosed with COVID-19. She did receive dialysis last Monday. She went to dialysis today but told the dialysis nurse that she continues to have diarrhea and that has caused her to have a low starting weight prior to dialysis. She says that she was told to go directly to the emergency department. She presents with a fever of about 103 F. She denies any chest pain, vomiting, abdominal pain, lower extremity swelling. Patient's call box wirer is Dr. Calderón. On top of the end-stage renal disease, the patient has a history of previous breast cancer with subsequent bilateral mastectomy and implants. No recent travel or sick contacts at home. ED Past Medical Hx - Past Medical History Hx Congestive Heart Failure: No Hx Renal Disease: Yes (HD on ) Hx Asthma: No Additional medical history: Breast CA - Surgical History Additional Surgical History: Double mastectomy - Social History Smoking Status: Never Smoker Substance Use Type: None - Medications Home Medications: Home Medications Medication Instructions Recorded Confirmed Last Taken Type Ganciclovir [Zirgan 0.15%] 1 drop OP 5XD #10 gel..gram. 04/03/20 04/30/21 02/16/21 Rx Acetaminophen [Acetaminophen TAB] 650 mg PO Q4H PRN tablet 02/27/21 04/30/21 Unknown Rx oxyCODONE /ACETAMINOPHEN [Percocet 1 tab PO Q6H PRN tablet 02/27/21 04/30/21 Unknown Rx 5/325 mg] oxyCODONE /ACETAMINOPHEN [Percocet 1 tab PO Q6HR PRN #12 tab 02/27/21 04/30/21 Unknown Rx 5/325] ED Review of Systems ROS: Stated complaint: COVID+/NEED DIALYSIS Other details as noted in HPI Constitutional: fever. denies: malaise Eyes: denies: eye pain, vision change ENT: denies: ear pain, throat pain Respiratory: cough, wheezing Cardiovascular: denies: chest pain, edema Gastrointestinal: nausea, diarrhea. denies: abdominal pain, vomiting Genitourinary: denies: dysuria, discharge Musculoskeletal: denies: back pain, arthralgia Skin: denies: rash, lesions Neurological: denies: headache, weakness Physical Exam - Physical Exam Vital Signs: Vital Signs 04/30/21 15:43 Temperature 102.9 F H Pulse Rate 89 Respiratory 18 Rate Blood Pressure 149/82 O2 Sat by Pulse 95 Oximetry Physical Exam: GENERAL: The patient is well-developed well-nourished. HENT: Normocephalic. Atraumatic. Patient has moist mucous membranes. EYES: Extraocular motions are intact. NECK: Supple. Trachea is midline. CHEST/LUNGS: Clear to auscultation. There is no respiratory distress noted. HEART/CARDIOVASCULAR: Regular. There is no tachycardia. There is no murmur. ABDOMEN: Abdomen is soft, nontender. Patient has normal bowel sounds. There is no abdominal distention. SKIN: Skin is warm and dry. NEURO: The patient is awake, alert, and oriented. The patient is cooperative. The patient has no focal neurologic deficits. Normal speech. MUSCULOSKELETAL: There is no tenderness or deformity. There is no limitation range of motion. ED Course Vital Signs 04/30/21 15:43 Temperature 102.9 F H Pulse Rate 89 Respiratory 18 Rate Blood Pressure 149/82 O2 Sat by Pulse 95 Oximetry - Reevaluation(s) Reevaluation #1: 04/30/21 16:31 Patient in a very short oxygen/ambulation test and went down to 79% on room air. ED Medical Decision Making - Lab Data Result diagrams: 04/30/21 16:13 04/30/21 16:13 Lab Results 04/30/21 04/30/21 04/30/21 Range/Units 16:13 16:13 16:39 WBC 6.7 (4.5-11.0) K/mm3 RBC 3.76 (3.65-5.03) M/mm3 Hgb 11.4 (10.1-14.3) gm/dl Hct 35.7 (30.3-42.9) % MCV 95 (79-97) fl MCH 30 (28-32) pg MCHC 32 (30-34) % RDW 20.5 H (13.2-15.2) % Plt Count 160 (140-440) K/mm3 Lymph % (Auto) 12.8 L (13.4-35.0) % [place] % (Auto) 7.0 (0.0-7.3) % Eos % (Auto) 0.7 (0.0-4.3) % Baso % (Auto) 0.4 (0.0-1.8) % Lymph # (Auto) 0.9 L (1.2-5.4) K/mm3 [place] # (Auto) 0.5 (0.0-0.8) K/mm3 Eos # (Auto) 0.0 (0.0-0.4) K/mm3 Baso # (Auto) 0.0 (0.0-0.1) K/mm3 Seg Neutrophils % 79.1 H (40.0-70.0) % Seg Neutrophils # 5.3 (1.8-7.7) K/mm3 D-Dimer 1784.35 H (0-234) ng/mlDDU Sodium 133 L (137-145) mmol/L Potassium 4.0 (3.6-5.0) mmol/L Chloride 95.3 L (98-107) mmol/L Carbon Dioxide 27 (22-30) mmol/L Anion Gap 15 mmol/L BUN 43 H (7-17) mg/dL Creatinine 9.0 H (0.6-1.2) mg/dL Estimated GFR 6 ml/min BUN/Creatinine Ratio 5 % Glucose 98 (65-100) mg/dL Calcium 8.7 (8.4-10.2) mg/dL Ferritin (10.0-200.0) ng/mL Total Bilirubin 0.50 (0.1-1.2) mg/dL AST 28 (5-40) units/L ALT 10 (7-56) units/L Alkaline Phosphatase 82 (35-129) units/L Lactate Dehydrogenase (91-180) units/L C-Reactive Protein (0.00-1.30) mg/dL Total Protein 8.0 (6.3-8.2) g/dL Albumin 3.7 L (3.9-5) g/dL Albumin/Globulin Ratio 0.9 % 04/30/21 04/30/21 Range/Units 16:39 16:39 WBC (4.5-11.0) K/mm3 RBC (3.65-5.03) M/mm3 Hgb (10.1-14.3) gm/dl Hct (30.3-42.9) % MCV (79-97) fl MCH (28-32) pg MCHC (30-34) % RDW (13.2-15.2) % Plt Count (140-440) K/mm3 Lymph % (Auto) (13.4-35.0) % [place] % (Auto) (0.0-7.3) % Eos % (Auto) (0.0-4.3) % Baso % (Auto) (0.0-1.8) % Lymph # (Auto) (1.2-5.4) K/mm3 [place] # (Auto) (0.0-0.8) K/mm3 Eos # (Auto) (0.0-0.4) K/mm3 Baso # (Auto) (0.0-0.1) K/mm3 Seg Neutrophils % (40.0-70.0) % Seg Neutrophils # (1.8-7.7) K/mm3 D-Dimer (0-234) ng/mlDDU Sodium (137-145) mmol/L Potassium (3.6-5.0) mmol/L Chloride (98-107) mmol/L Carbon Dioxide (22-30) mmol/L Anion Gap mmol/L BUN (7-17) mg/dL Creatinine (0.6-1.2) mg/dL Estimated GFR ml/min BUN/Creatinine Ratio % Glucose (65-100) mg/dL Calcium (8.4-10.2) mg/dL Ferritin 3294.0 H (10.0-200.0) ng/mL Total Bilirubin (0.1-1.2) mg/dL AST (5-40) units/L ALT (7-56) units/L Alkaline Phosphatase (35-129) units/L Lactate Dehydrogenase 404 H (91-180) units/L C-Reactive Protein 10.00 H (0.00-1.30) mg/dL Total Protein (6.3-8.2) g/dL Albumin (3.9-5) g/dL Albumin/Globulin Ratio % - Radiology Data Radiology results: image reviewed interpreted by me: Chest x-ray shows bilateral patchy infiltrates concerning for pneumonia. No pneumothorax. No widened mediastinum. - Medical Decision Making This patient presents to the emergency department after she did not receive dialysis due to copious diarrhea causing a low starting weight. She has already been positive for COVID-19. Patient has some mild rhonchi heard but does not appear in any respiratory distress. Chest x-ray shows bilateral patchy infiltrates concerning for pneumonia. Patient has been doing well on room air while at rest, however with ambulation the patient's pulse ox dropped to 79%. She has been given IV Decadron, IV antibiotics. Labs show the renal insufficiency consistent with end-stage renal disease on hemodialysis. She also has elevated inflammatory markers consistent with COVID- 19 infection. Nephrology was contacted and consulted. Patient will be admitted to the hospital for further evaluation and treatment and was accepted for admission by the hospitalist, Dr. Zuniga. Critical Care Time: No Critical care attestation.: If time is entered above; I have spent that time in minutes in the direct care of this critically ill patient, excluding procedure time. ED Disposition Clinical Impression: End stage renal disease on dialysis, Pneumonia, Suspected 2019 novel coronavirus infection, Obesity hypoventilation syndrome Disposition: ADMITTED INPATIENT Is pt being admited?: Yes Condition: Stable Time of Disposition: 23:16
[2021-04-30] MEDS ORDERED: dexAMETHasone 4 MG/ML VIAL IV ONE (16:30)
--- NOTE | 2021-04-30 16:41 | XRay Report ---
CHEST 2 VIEWS INDICATION / CLINICAL INFORMATION: Covid + sob crackles left lower lobe. COMPARISON: None available. FINDINGS: SUPPORT DEVICES: None. HEART / MEDIASTINUM: No significant abnormality. LUNGS / PLEURA: Mild patchy bilateral opacities. ADDITIONAL FINDINGS: No significant additional findings. IMPRESSION: 1. Mild patchy bilateral opacities likely indicating viral pneumonia. Signer Name: Edvin Suárez MD Signed: 04/30/2021 4:37 PM Workstation Name: [id number]
[2021-04-30 16:42] LABS: Basophils % (Auto) 0.4 % (0.0-1.8); Eosinophils % (Auto) 0.7 % (0.0-4.3); Hematocrit 35.7 % (30.3-42.9); Hemoglobin 11.4 gm/dl (10.1-14.3); Lymphocytes # (Auto) 0.9 K/mm3 (1.2-5.4); Lymphocytes % (Auto) 12.8 % (13.4-35.0); Mean Corpuscular HGB Conc 32 % (30-34); Mean Corpuscular Volume 95 fl (79-97); Monocytes # (Auto) 0.5 K/mm3 (0.0-0.8); Platelet Count 160 K/mm3 (140-440); Red Blood Count 3.76 M/mm3 (3.65-5.03)
[2021-04-30 16:47] LABS: Red Cell Distribution Width 20.5 % (13.2-15.2)
[2021-04-30] MEDS ORDERED: cefTRIAXone/NS 1 GM/50 ML 1 GM/50 ML BAG IV ONE (16:48)
[2021-04-30] MEDS ORDERED: AZITHROMYCIN/NS 500 MG/250 ML 500 MG/250 ML BAG IV ONE (16:48)
[2021-04-30 16:55] LABS: Albumin 3.7 g/dL (3.9-5); Calcium 8.7 mg/dL (8.4-10.2)
[2021-04-30] MEDS ORDERED: ACETAMINOPHEN 325 MG TAB PO PRN (17:13)
[2021-04-30] MEDS ORDERED: HYDROmorphone 1 MG/1 ML INJ IV PRN (17:13)
[2021-04-30] MEDS ORDERED: ONDANSETRON 4 MG/2 ML INJ IV PRN (17:13)
[2021-04-30] MEDS ORDERED: oxyCODONE /ACETAMINOPHEN 5-325MG TAB PO PRN (17:13)
[2021-04-30] MEDS ORDERED: ALBUTEROL 2.5 MG/3 ML NEBU IH PRN (17:13)
--- NOTE | 2021-04-30 17:16 | History and Physical Report ---
History of Present Illness Chief complaint: I feel sick History of present illness: 51 YO Female with ESRD on HD(T,R,Sa), Obesity Hypoventilation Syndrome, BrCa S/P Double Mastectomy, Coronavirus Infection diagnosed on 04/22/21 presents to ED for evaluation. Patient reports "I feel sick". Patient states that she had e xperienced nausea, shortness of breath, fatigue, malaise, decreased exercise tolerance fever, dry cough over the past 1 week with persistent and worsening symptoms over the same timeframe. Patient presented to her routine scheduled dialysis center today and was found to have the aforementioned symptoms. Patient referred to [facility] for further care and evaluation. Patient transported to [facility] via private vehicle for further care and evaluation of the aforementioned symptoms. The patient was seen and evaluated in the emergency department. All lab and imaging studies reviewed. The patient was found to have a fever to 103 F, as well as a pulse oximetry of 87% on room air with exertion which is consistent with acute hypoxemic respiratory failure. Chest x-ray revealed bilateral pneumonia. The patient was admitted to medical floor and initiated on pneumonia protocol as well as coronavirus protocol. Patient was also found to have end-stage renal disease in need of dialysis. Nephrology team consulted in ED. Patient denies chest pain, palpitation, skin rash, recent ill contact. Prior admission on 09/28/2020 reviewed. All medication listed at time of admission has been reconciled. Past History Past Medical History: cancer, ESRD Past Surgical History: mastectomy, Other (Dialysis access) Social history: single. denies: smoking, alcohol abuse Family history: diabetes, hypertension Medications and Allergies Allergies Allergy/AdvReac Type Severity Reaction Status Date / Time aspirin AdvReac Shortness Verified 04/30/21 17:57 of Breath Home Medications Medication Instructions Recorded Confirmed Last Taken Type Ganciclovir [Zirgan 0.15%] 1 drop OP 5XD #10 gel..gram. 04/03/20 04/30/21 02/16/21 Rx Acetaminophen [Acetaminophen TAB] 650 mg PO Q4H PRN tablet 02/27/21 04/30/21 Unknown Rx oxyCODONE /ACETAMINOPHEN [Percocet 1 tab PO Q6H PRN tablet 02/27/21 04/30/21 Unknown Rx 5/325 mg] oxyCODONE /ACETAMINOPHEN [Percocet 1 tab PO Q6HR PRN #12 tab 02/27/21 04/30/21 Unknown Rx 5/325] Active Meds: Active Medications Acetaminophen (Acetaminophen 325 Mg Tab) 650 mg PO Q4H PRN PRN Reason: Pain MILD(1-3)/Fever >100.5/GUNDERSON Albuterol (Albuterol 2.5 Mg/3 Ml Nebu) 2.5 mg IH Q4HRT PRN PRN Reason: Shortness Of Breath Famotidine (Famotidine 20 Mg Tab) 20 mg PO BID NEY Hydromorphone HCl (Hydromorphone 1 Mg/1 Ml Inj) 0.5 mg IV Q24H PRN PRN Reason: Pain , Severe (7-10) Ceftriaxone Sodium (Rocephin/Ns 1 Gm/50 Ml) 1 gm in 50 mls @ 100 mls/hr IV ONCE ONE; Protocol Stop: 04/30/21 17:17 Last Admin: 04/30/21 17:07 Dose: 100 mls/hr Documented by: Azithromycin (Zithromax/Ns) 500 mg in 250 mls @ 250 mls/hr IV ONCE ONE; Protocol Stop: 04/30/21 17:47 Last Admin: 04/30/21 17:06 Dose: 250 mls/hr Documented by: Ceftriaxone Sodium (Rocephin/Ns 2 Gm/100 Ml) 2 gm in 100 mls @ 200 mls/hr IV Q24H NEY; Protocol Azithromycin (Zithromax/Ns) 500 mg in 250 mls @ 250 mls/hr IV Q24H NEY; Protocol Ondansetron HCl (Ondansetron 4 Mg/2 Ml Inj) 4 mg IV Q8H PRN PRN Reason: Nausea And Vomiting Oxycodone/Acetaminophen (Oxycodone /Acetaminophen 5-325mg Tab) 1 tab PO Q12H PRN PRN Reason: Pain, Moderate (4-6) Sodium Chloride (Sodium Chloride 0.9% 10 Ml Flush Syringe) 10 ml IV BID NEY Sodium Chloride (Sodium Chloride 0.9% 10 Ml Flush Syringe) 10 ml IV PRN PRN PRN Reason: LINE FLUSH Review of Systems Constitutional: fever, fatigue, weakness, malaise Ears, nose, mouth and throat: no ear pain, no tinnitis, no decreased hearing, no nasal congestion, no nasal discharge Breasts: no change in shape Cardiovascular: no chest pain, no orthopnea, no rapid/irregular heart beat, no edema Respiratory: shortness of breath, no cough, no cough with sputum, no dyspnea on exertion Gastrointestinal: nausea, no vomiting, no constipation, no hematemesis Genitourinary Female: no pelvic pain, no flank pain, no dysuria, no urinary frequency Rectal: no pain, no incontinence, no bleeding Musculoskeletal: no neck stiffness, no neck pain, no shooting arm pain, no arm numbness/tingling, no low back pain Integumentary: no rash, no pruritis, no redness, no sores, no wounds, no boils Neurological: no head injury, no weakness, no parathesias, no numbness, no seizures, no syncope, no tremors, no ataxia Psychiatric: no anxiety, no memory loss, no hypersomnia, no change in libido, no disorientation Endocrine: no cold intolerance, no heat intolerance, no excessive thirst, no polydipsia, no weight change Hematologic/Lymphatic: no easy bruising, no lymphadenopathy, no lymphedema Allergic/Immunologic: no urticaria, no allergic rhinitis, no wheezing, no p ersistent infections, no anaphylaxis, no angioedema Exam - Constitutional Vitals: Temp Pulse Resp BP Pulse Ox 102.9 F H 89 18 149/82 95 04/30/21 15:43 04/30/21 15:43 04/30/21 15:43 04/30/21 15:43 04/30/21 15:43 General appearance: Present: mild distress, obese - EENT Eyes: Present: PERRL ENT: hearing intact, clear oral mucosa - Neck Neck: Present: supple, normal ROM - Respiratory Respiratory effort: labored, accessory muscle use Respiratory: bilateral: CTA, diminished, rhonchi - Cardiovascular Heart Sounds: Present: S1 & S2. Absent: rub, click - Extremities Extremities: pulses symmetrical, No edema Peripheral Pulses: within normal limits - Abdominal General gastrointestinal: Present: soft, non-tender, non-distended, normal bowel sounds Female genitourinary: Present: normal - Integumentary Integumentary: Present: clear, warm, dry - Musculoskeletal Musculoskeletal: gait normal, strength equal bilaterally - Psychiatric Psychiatric: appropriate mood/affect, intact judgment & insight - Neurologic Neurologic: CNII-XII intact, moves all extremities Results - Labs CBC & Chem 7: 04/30/21 16:13 04/30/21 16:13 Labs: Abnormal lab results 04/30/21 04/30/21 04/30/21 Range/Units 16:13 16:13 16:39 RDW 20.5 H (13.2-15.2) % Lymph % (Auto) 12.8 L (13.4-35.0) % Lymph # (Auto) 0.9 L (1.2-5.4) K/mm3 Seg Neutrophils % 79.1 H (40.0-70.0) % Sodium 133 L (137-145) mmol/L Chloride 95.3 L (98-107) mmol/L BUN 43 H (7-17) mg/dL Creatinine 9.0 H (0.6-1.2) mg/dL Lactate Dehydrogenase 404 H (91-180) units/L C-Reactive Protein 10.00 H (0.00-1.30) mg/dL Albumin 3.7 L (3.9-5) g/dL Assessment and Plan - Patient Problems (1) Acute hypoxemic respiratory failure Current Visit: Yes Status: Acute Plan to address problem: Chest x-ray, supplemental oxygen, pulse oximetry, nebulizer therapy, prone positioning while in bed, pulmonary toilet (2) Suspected 2019 novel coronavirus infection Current Visit: Yes Status: Acute Plan to address problem: Coronavirus protocol: IV antibiotic therapy, IV steroid therapy, supplemental oxygen, pulse oximetry, nebulizer therapy, contact precautions, isolation precaution, vitamin D therapy, vitamin C therapy, zinc therapy, prophylactic anticoagulation (3) Pneumonia Current Visit: Yes Status: Acute Plan to address problem: Pneumonia protocol: Chest x-ray, CBC, CMP, IV antibiotic therapy, supplemental oxygen, pulse oximetry, nebulizer therapy, blood culture. (4) Obesity hypoventilation syndrome Current Visit: Yes Status: Acute Plan to address problem: Balanced diet, increase physical activity at discharge, outpatient pulmonary follow-up for sleep study (5) ESRD (end stage renal disease) Current Visit: No Status: Acute Plan to address problem: Nephrology team consulted in ED, dialysis as per renal team, strict I's/O, afterload reduction, avoid nephrotoxic agents. (6) DVT prophylaxis Current Visit: Yes Status: Acute Plan to address problem: SCD to bilateral lower extremities while in bed, prophylactic anticoagulation (7) Advance care planning Current Visit: Yes Status: Acute Plan to address problem: Disease education conducted, care plan discussed, diagnosis discussed, patient is full code, patient has understanding and agree with care plan, +30 minutes.
[2021-04-30] MEDS: AZITHROMYCIN/NS 500 MG/250 ML 500 MG/250 ML BAG IV SCH (17:40)
[2021-04-30] MEDS: cefTRIAXone/NS 2 GM/100 ML 2 GM/100 ML BAG IV SCH (18:59)
--- NOTE | 2021-04-30 19:20 | Consultation ---
History of Present Illness - Reason for Consult Consult date: 04/30/21 end stage renal disease - History of Present Illness Mrs. Musa is a 51yo with ESRD on HD TTS, breast CA s/p bilateral mastectomy and obesity hypovenilation syndrome who presented to the ED with c/o malaise. She was recently diagnosed with COVID-19 on 04/22/2021. Patient also reports fatigue, SOB. In the ED, patietn was febrile to 103 F and hyoxic 87% on room air. Chest x-ray revealed bilateral pneumonia. Past History Past Medical History: cancer, ESRD Past Surgical History: mastectomy, Other (Dialysis access) Social history: single. denies: smoking, alcohol abuse Family history: diabetes, hypertension Medications and Allergies Allergies Allergy/AdvReac Type Severity Reaction Status Date / Time aspirin AdvReac Shortness Verified 04/30/21 17:57 of Breath Home Medications Medication Instructions Recorded Confirmed Last Taken Type Ganciclovir [Zirgan 0.15%] 1 drop OP 5XD #10 gel..gram. 04/03/20 04/30/21 02/16/21 Rx Acetaminophen [Acetaminophen TAB] 650 mg PO Q4H PRN tablet 02/27/21 04/30/21 Unknown Rx oxyCODONE /ACETAMINOPHEN [Percocet 1 tab PO Q6H PRN tablet 02/27/21 04/30/21 Unknown Rx 5/325 mg] oxyCODONE /ACETAMINOPHEN [Percocet 1 tab PO Q6HR PRN #12 tab 02/27/21 04/30/21 U nknown Rx 5/325] Active Meds: Active Medications Acetaminophen (Acetaminophen 325 Mg Tab) 650 mg PO Q4H PRN PRN Reason: Pain MILD(1-3)/Fever >100.5/GUNDERSON Albuterol (Albuterol 2.5 Mg/3 Ml Nebu) 2.5 mg IH Q4HRT PRN PRN Reason: Shortness Of Breath Ascorbic Acid (Ascorbic Acid 500 Mg Tab) 500 mg PO BID NEY Cholecalciferol (Cholecalciferol (Vit D3) 400 Unit Tab) 1,000 unit PO QDAY NEY Famotidine (Famotidine 20 Mg Tab) 20 mg PO BID NEY Heparin Sodium (Porcine) (Heparin 5,000 Unit/1 Ml Vial) 5,000 unit SUB-Q Q12HR NEY Hydromorphone HCl (Hydromorphone 1 Mg/1 Ml Inj) 0.5 mg IV Q24H PRN PRN Reason: Pain , Severe (7-10) Ceftriaxone Sodium (Rocephin/Ns 2 Gm/100 Ml) 2 gm in 100 mls @ 200 mls/hr IV Q24H NEY; Protocol Last Admin: 04/30/21 18:59 Dose: 200 mls/hr Documented by: Azithromycin (Zithromax/Ns) 500 mg in 250 mls @ 250 mls/hr IV Q24H NEY; Protoco l Last Admin: 04/30/21 17:40 Dose: 250 mls/hr Documented by: Methylprednisolone Sodium Succinate (Methylprednisolone Sod Succinate 40 Mg/1 Ml Inj) 40 mg IV Q8HR NEY Ondansetron HCl (Ondansetron 4 Mg/2 Ml Inj) 4 mg IV Q8H PRN PRN Reason: Nausea And Vomiting Oxycodone/Acetaminophen (Oxycodone /Acetaminophen 5-325mg Tab) 1 tab PO Q12H PRN PRN Reason: Pain, Moderate (4-6) Sodium Chloride (Sodium Chloride 0.9% 10 Ml Flush Syringe) 10 ml IV BID NEY Sodium Chloride (Sodium Chloride 0.9% 10 Ml Flush Syringe) 10 ml IV PRN PRN PRN Reason: LINE FLUSH Zinc Sulfate (Zinc Sulfate 220 Mg Cap) 220 mg PO BID NEY Review of Systems All systems: negative Exam - Vital Signs Vital signs: Vital Signs Temp Pulse Resp BP Pulse Ox 102.9 F H 89 18 149/82 95 04/30/21 15:43 04/30/21 15:43 04/30/21 15:43 04/30/21 15:43 04/30/21 15:43 - General Appearance General appearance: well-developed, well-nourished EENT: ATNC Neurologic: alert and oriented x3 Psychiatric: cooperative Results - Lab Results 04/30/21 16:13 04/30/21 16:13 Most recent lab results Calcium 8.7 mg/dL (8.4-10.2) 04/30/21 16:13 Assessment and Plan Impression: * End stage renal disease * Acute hypoxic respiratory failure * COVID 19 PNA * Hyponatremia * Anemia secondary to ESRD * Secondary hyperparathyroidism Plan: * No emergent need for HD today * Will plan for HD tomorrow AM * UF as tolerated * Management of COVID 19 PNA per primary team * Dose medications for renal function * Avoid potential nephrotoxins * Epogen TIW prn * Renal diet
[2021-04-30] MEDS: HEPARIN 5,000 UNIT/1 ML VIAL SUB-Q SCH (22:00)
[2021-04-30] MEDS: ASCORBIC ACID 500 MG TAB PO SCH (22:00)
[2021-04-30] MEDS: methylPREDNISolone Sod Succinate 40 MG/1 ML INJ IV SCH (22:00)
[2021-04-30] MEDS: ZINC SULFATE 220 MG CAP PO SCH (22:00)
[2021-04-30] MEDS ORDERED: FAMOTIDINE 20 MG TAB PO SCH (22:00)
[2021-05-01 05:26] LABS: Basophils % (Auto) 0.1 % (0.0-1.8); Hematocrit 38.8 % (30.3-42.9); Hemoglobin 12.5 gm/dl (10.1-14.3); Lymphocytes # (Auto) 0.6 K/mm3 (1.2-5.4); Lymphocytes % (Auto) 11.2 % (13.4-35.0); Mean Corpuscular HGB Conc 32 % (30-34); Mean Corpuscular Volume 97 fl (79-97); Monocytes # (Auto) 0.2 K/mm3 (0.0-0.8); Monocytes % (Auto) 2.8 % (0.0-7.3); Platelet Count 141 K/mm3 (140-440); Red Blood Count 4.01 M/mm3 (3.65-5.03)
[2021-05-01 05:29] LABS: Red Cell Distribution Width 20.8 % (13.2-15.2)
[2021-05-01 05:38] LABS: Calcium 9.2 mg/dL (8.4-10.2)
[2021-05-01] MEDS: methylPREDNISolone Sod Succinate 40 MG/1 ML INJ IV SCH ×2 (07:00→15:02)
[2021-05-01] MEDS ORDERED: FAMOTIDINE 20 MG/2 ML INJ IV ONE (09:54)
[2021-05-01] MEDS ORDERED: CHOLECALCIFEROL (VIT D3) 400 UNIT TAB PO SCH (10:00)
[2021-05-01] MEDS: HEPARIN 5,000 UNIT/1 ML VIAL SUB-Q SCH (10:18)
[2021-05-01] MEDS: ASCORBIC ACID 500 MG TAB PO SCH (10:19)
[2021-05-01] MEDS: FAMOTIDINE 10 MG TAB PO SCH (10:19)
[2021-05-01] MEDS: CHOLECALCIFEROL (VIT D3) 1000 UNIT (25 mcg) TAB PO SCH (10:19)
[2021-05-01] MEDS: ZINC SULFATE 220 MG CAP PO SCH (10:19)
--- NOTE | 2021-05-01 10:37 | Progress Note ---
Assessment and Plan Assessment and Plan - Patient Problems (1) Acute hypoxemic respiratory failure Current Visit: Yes Status: Acute Plan to address problem: Chest x-ray, supplemental oxygen, pulse oximetry, nebulizer therapy, prone positioning while in bed, pulmonary toilet (2) SIRS Although inflammatory markers are elevated consistent with systemic inflammatory response syndrome (3) Suspected 2019 novel coronavirus infection Current Visit: Yes Status: Acute Plan to address problem: Coronavirus protocol: IV antibiotic therapy, IV steroid therapy, supplemental oxygen, pulse oximetry, nebulizer therapy, contact precautions, isolation precaution, vitamin D therapy, vitamin C therapy, zinc therapy, prophylactic anticoagulation (4) Pneumonia Current Visit: Yes Status: Acute Plan to address problem: Pneumonia protocol: Chest x-ray, CBC, CMP, IV antibiotic therapy, supplemental oxygen, pulse oximetry, nebulizer therapy, blood culture. (5) ESRD (end stage renal disease) Current Visit: No Status: Acute Plan to address problem: Nephrology team consulted in ED, dialysis as per renal team, strict I's/O, afterload reduction, avoid nephrotoxic agents. (6) Obesity hypoventilation syndrome Current Visit: Yes Status: Acute Plan to address problem: Balanced diet, increase physical activity at discharge, outpatient pulmonary follow-up for sleep study (7) DVT prophylaxis Current Visit: Yes Status: Acute Plan to address problem: SCD to bilateral lower extremities while in bed, prophylactic anticoagulation Subjective Date of service: 05/01/21 Principal diagnosis: Acute respiratory failure with hypoxia, bilateral pneumonia Interval history: 51 YO Female with ESRD on HD(T,R,Sa), Obesity Hypoventilation Syndrome, BrCa S/P Double Mastectomy, Coronavirus Infection diagnosed on 04/22/21 presents to ED for evaluation. Patient reports "I feel sick". Patient states that she had experienced nausea, shortness of breath, fatigue, malaise, decreased exercise tolerance fever, dry cough over the past 1 week with persistent and worsening symptoms over the same timeframe. Patient presented to her routine scheduled dialysis center today and was found to have the aforementioned symptoms. Patient referred to [facility] for further care and evaluation. Patient transported to [facility] via private vehicle for further care and evaluation of the aforementioned symptoms. The patient was seen and evaluated in the emergency department. All lab and imaging studies reviewed. The patient was found to have a fever to 103 F, as well as a pulse oximetry of 87% on room air with exertion which is consistent with acute hypoxemic respiratory failure. Chest x-ray revealed bilateral pneumonia. The patient was admitted to medical floor and initiated on pneumonia protocol as well as coronavirus protocol. Patient was also found to have end-stage renal disease in need of dialysis. Nephrology team consulted in ED. Patient denies chest pain, palpitation, skin rash, recent ill contact. Prior admission on 09/28/2020 reviewed. All medication listed at time of admission has been reconciled. 05/01/2021 Patient still very short of breath On supplemental oxygen Covid test pending Objective - Constitutional Vitals: Vital Signs - 12hr 04/30/21 04/30/21 04/30/21 22:45 23:31 23:45 Pulse Rate 74 62 60 Respiratory 11 L 18 18 Rate Blood Pressure 135/84 142/85 157/94 O2 Sat by Pulse 99 100 100 Oximetry 05/01/21 05/01/21 05/01/21 00:01 00:15 00:45 Pulse Rate 74 72 67 Respiratory 8 L 11 L 13 Rate Blood Pressure 159/105 175/112 159/92 O2 Sat by Pulse 99 97 100 Oximetry 05/01/21 05/01/21 05/01/21 01:00 01:15 01:31 Pulse Rate 67 68 65 Respiratory 17 17 11 L Rate Blood Pressure 159/90 159/90 O2 Sat by Pulse 98 99 99 Oximetry 05/01/21 05/01/21 05/01/21 01:45 02:01 02:15 Pulse Rate 67 64 61 Respiratory 15 12 12 Rate Blood Pressure 159/90 146/80 146/80 O2 Sat by Pulse 99 99 97 Oximetry 05/01/21 05/01/21 05/01/21 02:31 02:45 03:01 Pulse Rate 58 L 59 L 66 Respiratory 12 10 L 15 Rate Blood Pressure 146/80 146/80 157/89 O2 Sat by Pulse 98 98 100 Oximetry 05/01/21 05/01/21 05/01/21 03:15 03:31 03:45 Pulse Rate 62 61 59 L Respiratory 23 20 21 Rate Blood Pressure 157/89 157/89 157/89 O2 Sat by Pulse 98 99 98 Oximetry 05/01/21 05/01/21 05/01/21 04:01 04:15 04:31 Pulse Rate 57 L 57 L 59 L Respiratory 22 20 21 Rate Blood Pressure 145/80 145/80 145/80 O2 Sat by Pulse 98 98 99 Oximetry 05/01/21 05/01/21 04:45 07:01 Pulse Rate 64 61 Respiratory 12 14 Rate Blood Pressure 145/80 162/93 O2 Sat by Pulse 100 100 Oximetry General appearance: Present: no acute distress, well-nourished - EENT Eyes: PERRL, EOM intact ENT: hearing intact, clear oral mucosa Ears: bilateral: normal - Neck Neck: supple, normal ROM - Respiratory Respiratory effort: normal Respiratory: bilateral: CTA, rhonchi (Scattered) - Breasts Breasts: normal - Cardiovascular Heart rate: 88 Rhythm: regular Heart Sounds: Present: S1 & S2. Absent: gallop, rub Extremities: pulses intact, No edema, normal color, Full ROM - Gastrointestinal General gastrointestinal: Present: soft, non-tender, non-distended, normal bowel sounds - Genitourinary Female genitourinary: normal - Integumentary Integumentary: clear, warm, dry - Musculoskeletal Musculoskeletal: 1, strength equal bilaterally - Neurologic Neurologic: moves all extremities - Psychiatric Psychiatric: memory intact, appropriate mood/affect, intact judgment & insight - Labs CBC & Chem 7: 05/01/21 04:33 05/01/21 04:33 Labs: Abnormal lab results 04/30/21 04/30/21 04/30/21 Range/Units 16:13 16:13 16:39 RDW 20.5 H (13.2-15.2) % Lymph % (Auto) 12.8 L (13.4-35.0) % Lymph # (Auto) 0.9 L (1.2-5.4) K/mm3 Seg Neutrophils % 79.1 H (40.0-70.0) % D-Dimer 1784.35 H (0-234) ng/mlDDU Sodium 133 L (137-145) mmol/L Potassium (3.6-5.0) mmol/L Chloride 95.3 L (98-107) mmol/L BUN 43 H (7-17) mg/dL Creatinine 9.0 H (0.6-1.2) mg/dL Glucose (65-100) mg/dL Ferritin (10.0-200.0) ng/mL Lactate Dehydrogenase (91-180) units/L C-Reactive Protein (0.00-1.30) mg/dL Albumin 3.7 L (3.9-5) g/dL 04/30/21 04/30/21 05/01/21 Range/Units 16:39 16:39 04:33 RDW 20.8 H (13.2-15.2) % Lymph % (Auto) 11.2 L (13.4-35.0) % Lymph # (Auto) 0.6 L (1.2-5.4) K/mm3 Seg Neutrophils % 85.9 H (40.0-70.0) % D-Dimer (0-234) ng/mlDDU Sodium (137-145) mmol/L Potassium (3.6-5.0) mmol/L Chloride (98-107) mmol/L BUN (7-17) mg/dL Creatinine (0.6-1.2) mg/dL Glucose (65-100) mg/dL Ferritin 3294.0 H (10.0-200.0) ng/mL Lactate Dehydrogenase 404 H (91-180) units/L C-Reactive Protein 10.00 H (0.00-1.30) mg/dL Albumin (3.9-5) g/dL 05/01/21 Range/Units 04:33 RDW (13.2-15.2) % Lymph % (Auto) (13.4-35.0) % Lymph # (Auto) (1.2-5.4) K/mm3 Seg Neutrophils % (40.0-70.0) % D-Dimer (0-234) ng/mlDDU Sodium (137-145) mmol/L Potassium 5.2 H D (3.6-5.0) mmol/L Chloride 97.8 L (98-107) mmol/L BUN 54 H (7-17) mg/dL Creatinine 9.9 H (0.6-1.2) mg/dL Glucose 143 H (65-100) mg/dL Ferritin (10.0-200.0) ng/mL Lactate Dehydrogenase (91-180) units/L C-Reactive Protein (0.00-1.30) mg/dL Albumin (3.9-5) g/dL
[2021-05-01] MEDS ORDERED: SODIUM CHLORIDE 0.9% 100 ML IV PRN (12:17)
[2021-05-01 14:46] LABS: Hepatitis C Virus Antibody Non-Reactive (NonReactive)
[2021-05-01 14:56] LABS: Hepatitis B Surface Antigen Nonreactive (Negative)
[2021-05-01] MEDS: cefTRIAXone/NS 2 GM/100 ML 2 GM/100 ML BAG IV SCH (18:07)
[2021-05-01] MEDS: AZITHROMYCIN/NS 500 MG/250 ML 500 MG/250 ML BAG IV SCH (18:07)
--- NOTE | 2021-05-01 20:14 | Progress Note ---
Assessment and Plan Impression: * End stage renal disease * Acute hypoxic respiratory failure * COVID 19 PNA * Hyponatremia * Anemia secondary to ESRD * Secondary hyperparathyroidism Plan: * HD today * Resume MWF schedule next week * UF as tolerated * Management of COVID 19 PNA per primary team * Dose medications for renal function * Avoid potential nephrotoxins * Epogen TIW prn * Renal diet Subjective Date of service: 05/01/21 Principal diagnosis: Acute respiratory failure with hypoxia, bilateral pneumonia Interval history: Patient denies SOB. Tolerated HD today. Objective - Vital Signs Vital signs: Vital Signs - 12hr 05/01/21 05/01/21 05/01/21 08:15 08:31 08:45 Temperature Pulse Rate 64 63 66 Respiratory 16 12 11 L Rate Blood Pressure 157/93 157/93 157/93 O2 Sat by Pulse 98 99 100 Oximetry O2 Sat by Pulse Oximetry [ Throughout] 05/01/21 05/01/21 05/01/21 09:01 09:15 09:31 Temperature Pulse Rate Respiratory Rate Blood Pressure 162/95 162/95 162/95 O2 Sat by Pulse 98 99 97 Oximetry O2 Sat by Pulse Oximetry [ Throughout] 05/01/21 05/01/21 05/01/21 09:45 10:00 10:15 Temperature Pulse Rate 64 68 66 Respiratory 13 21 11 L Rate Blood Pressure 162/95 159/97 159/97 O2 Sat by Pulse 100 98 100 Oximetry O2 Sat by Pulse Oximetry [ Throughout] 05/01/21 05/01/21 05/01/21 10:31 10:45 11:01 Temperature Pulse Rate 70 66 67 Respiratory 16 14 16 Rate Blood Pressure 159/97 159/97 146/87 O2 Sat by Pulse 97 100 99 Oximetry O2 Sat by Pulse Oximetry [ Throughout] 05/01/21 05/01/21 05/01/21 11:15 11:31 11:45 Temperature Pulse Rate 69 68 69 Respiratory 19 13 15 Rate Blood Pressure 146/87 146/87 146/87 O2 Sat by Pulse 97 100 99 Oximetry O2 Sat by Pulse Oximetry [ Throughout] 05/01/21 05/01/21 05/01/21 12:01 12:15 12:31 Temperature Pulse Rate 67 68 75 Respiratory 21 16 20 Rate Blood Pressure 160/89 160/89 160/89 O2 Sat by Pulse 99 100 95 Oximetry O2 Sat by Pulse Oximetry [ Throughout] 05/01/21 05/01/21 05/01/21 12:45 13:01 13:15 Temperature Pulse Rate 72 67 68 Respiratory 14 15 21 Rate Blood Pressure 160/89 162/90 162/90 O2 Sat by Pulse 97 97 98 Oximetry O2 Sat by Pulse Oximetry [ Throughout] 05/01/21 05/01/21 05/01/21 13:31 13:45 14:01 Temperature Pulse Rate 68 67 67 Respiratory 18 17 17 Rate Blood Pressure 162/90 162/90 141/83 O2 Sat by Pulse 99 99 98 Oximetry O2 Sat by Pulse Oximetry [ Throughout] 05/01/21 05/01/21 05/01/21 14:15 14:31 14:45 Temperature Pulse Rate 72 68 66 Respiratory 15 16 13 Rate Blood Pressure 141/83 141/83 141/83 O2 Sat by Pulse 100 98 99 Oximetry O2 Sat by Pulse Oximetry [ Throughout] 05/01/21 05/01/21 05/01/21 15:01 15:15 15:31 Temperature Pulse Rate 67 68 Respiratory 15 16 Rate Blood Pressure 148/84 148/84 148/84 O2 Sat by Pulse 100 99 100 Oximetry O2 Sat by Pulse Oximetry [ Throughout] 05/01/21 05/01/21 05/01/21 15:45 16:00 16:01 Temperature 98.0 F Pulse Rate 68 Respiratory 18 Rate Blood Pressure 148/84 139/82 139/82 O2 Sat by Pulse 100 100 Oximetry O2 Sat by Pulse 100 Oximetry [ Throughout] 05/01/21 05/01/21 05/01/21 16:15 16:30 16:31 Temperature Pulse Rate 68 66 Respiratory Rate Blood Pressure 139/82 139/80 139/82 O2 Sat by Pulse 100 98 Oximetry O2 Sat by Pulse Oximetry [ Throughout] 05/01/21 05/01/21 05/01/21 16:45 17:00 17:15 Temperature Pulse Rate 68 65 63 Respiratory Rate Blood Pressure 157/94 172/96 173/96 O2 Sat by Pulse 100 Oximetry O2 Sat by Pulse Oximetry [ Throughout] 05/01/21 17:30 Temperature Pulse Rate 63 Respiratory Rate Blood Pressure 164/90 O2 Sat by Pulse Oximetry O2 Sat by Pulse Oximetry [ Throughout] - General Appearance General appearance: well-developed, well-nourished EENT: other (mask in place) Respiratory: Present: Other (unable to exam - isolation stethoscope unavailable) Cardiology: other (unable to exam - isolation stethoscope unavailable) Gastrointestinal: no tenderness, no distended Integumentary: warm and dry Neurologic: alert and oriented x3 Musculoskeletal: other (no edema) Psychiatric: cooperative - Lab 05/01/21 04:33 05/01/21 04:33 Most recent lab results Calcium 9.2 mg/dL (8.4-10.2) 05/01/21 04:33 Medications & Allergies - Medications Allergies/Adverse Reactions: Allergies aspirin Adverse Reaction (Verified 04/30/21 17:57) Shortness of Breath Home Medications: Home Medications Medication Instructions Recorded Confirmed Last Taken Type Ganciclovir [Zirgan 0.15%] 1 drop OP 5XD #10 gel..gram. 04/03/20 04/30/21 02/16/21 Rx Acetaminophen [Acetaminophen TAB] 650 mg PO Q4H PRN tablet 02/27/21 04/30/21 Unknown Rx oxyCODONE /ACETAMINOPHEN [Percocet 1 tab PO Q6H PRN tablet 02/27/21 04/30/21 Unknown Rx 5/325 mg] oxyCODONE /ACETAMINOPHEN [Percocet 1 tab PO Q6HR PRN #12 tab 02/27/21 04/30/21 Unknown Rx 5/325] Active Medications: Generic Name Dose Route Start Last Admin Trade Name Freq PRN Reason Stop Dose Admin Acetaminophen 650 mg 04/30/21 17:13 Acetaminophen 325 Mg Tab PO Q4H PRN Pain MILD(1-3)/Fever >100.5/GUNDERSON Albuterol 2.5 mg 04/30/21 17:13 Albuterol 2.5 Mg/3 Ml Nebu IH Q4HRT PRN Shortness Of Breath Ascorbic Acid 500 mg 04/30/21 22:00 05/01/21 10:19 Ascorbic Acid 500 Mg Tab PO 500 mg BID NEY Administration Cholecalciferol 1,000 unit 05/01/21 10:00 05/01/21 10:19 Cholecalciferol (Vit D3) 1000 Unit (25 Mcg) Tab PO 1,000 unit DAILY NEY Administration Famotidine 10 mg 05/01/21 10:00 05/01/21 10:19 Famotidine 10 Mg Tab PO 10 mg BID NEY Administration Heparin Sodium (Porcine) 5,000 unit 04/30/21 22:00 05/01/21 10:18 Heparin 5,000 Unit/1 Ml Vial SUB-Q 5,000 unit Q12HR NEY Administration Hydromorphone HCl 0.5 mg 04/30/21 17:13 Hydromorphone 1 Mg/1 Ml Inj IV Q24H PRN Pain , Severe (7-10) Ceftriaxone Sodium 2 gm in 100 mls @ 200 mls/hr 04/30/21 18:00 05/01/21 18:07 Rocephin/Ns 2 Gm/100 Ml IV 05/04/21 18:29 Not Given Q24H NEY Protocol Azithromycin 500 mg in 250 mls @ 250 mls/hr 04/30/21 18:00 05/01/21 18:07 Zithromax/Ns IV 05/04/21 18:59 Not Given Q24H NEY Protocol Sodium Chloride 100 mls @ 999 mls/hr 05/01/21 12:17 Nacl 0.9% IV LON PRN Hypotension Methylprednisolone Sodium Succinate 40 mg 04/30/21 22:00 05/01/21 15:02 Methylprednisolone Sod Succinate 40 Mg/1 Ml Inj IV Not Given Q8HR NEY Ondansetron HCl 4 mg 04/30/21 17:13 Ondansetron 4 Mg/2 Ml Inj IV Q8H PRN Nausea And Vomiting Oxycodone/Acetaminophen 1 tab 04/30/21 17:13 Oxycodone /Acetaminophen 5-325mg Tab PO Q12H PRN Pain, Moderate (4-6) Sodium Chloride 10 ml 04/30/21 22:00 05/01/21 10:19 Sodium Chloride 0.9% 10 Ml Flush Syringe IV 10 ml BID NEY Administration Sodium Chloride 10 ml 04/30/21 17:13 Sodium Chloride 0.9% 10 Ml Flush Syringe IV PRN PRN LINE FLUSH Zinc Sulfate 220 mg 04/30/21 22:00 05/01/21 10:19 Zinc Sulfate 220 Mg Cap PO 220 mg BID NEY Administration
[2021-05-02] MEDS: ASCORBIC ACID 500 MG TAB PO SCH ×3 (00:34→21:39)
[2021-05-02] MEDS: FAMOTIDINE 10 MG TAB PO SCH ×3 (00:34→21:38)
[2021-05-02] MEDS: ZINC SULFATE 220 MG CAP PO SCH ×3 (00:35→21:39)
[2021-05-02] MEDS: HEPARIN 5,000 UNIT/1 ML VIAL SUB-Q SCH ×3 (00:35→21:39)
[2021-05-02] MEDS: methylPREDNISolone Sod Succinate 40 MG/1 ML INJ IV SCH ×4 (00:35→21:39)
[2021-05-02] MEDS ORDERED: AZITHROMYCIN/NS 500 MG/250 ML 500 MG/250 ML BAG IV ONE (01:00)
[2021-05-02] MEDS ORDERED: cefTRIAXone/NS 2 GM/100 ML 2 GM/100 ML BAG IV ONE (01:00)
[2021-05-02] MEDS: CHOLECALCIFEROL (VIT D3) 1000 UNIT (25 mcg) TAB PO SCH (09:18)
--- NOTE | 2021-05-02 12:51 | Progress Note ---
Assessment and Plan Assessment and Plan - Patient Problems (1) Acute hypoxemic respiratory failure Current Visit: Yes Status: Acute Plan to address problem: On room air today We will watch for 24 hours and discharge tomorrow if ambulatory oxygen is normal 2)SIRS Inflammatory markers are elevated and consistent with systemic inflammatory response syndrome (3) Suspected 2019 novel coronavirus infection Current Visit: Yes Status: Acute Plan to address problem: Coronavirus protocol: IV antibiotic therapy, IV steroid therapy, supplemental oxygen, pulse oximetry, nebulizer therapy, contact precautions, isolation precaution, vitamin D therapy, vitamin C therapy, zinc therapy, prophylactic anticoagulation (4) Pneumonia Current Visit: Yes Status: Acute Plan to address problem: Pneumonia protocol: Chest x-ray, CBC, CMP, IV antibiotic therapy, supplemental oxygen, pulse oximetry, nebulizer therapy, blood culture. (5) ESRD (end stage renal disease) Current Visit: No Status: Acute Plan to address problem: Nephrology team consulted in ED, dialysis as per renal team, strict I's/O, afterload reduction, avoid nephrotoxic agents. (6) Obesity hypoventilation syndrome Current Visit: Yes Status: Acute Plan to address problem: Balanced diet, increase physical activity at discharge, outpatient pulmonary follow-up for sleep study (7) DVT prophylaxis Current Visit: Yes Status: Acute Plan to address problem: SCD to bilateral lower extremities while in bed, prophylactic anticoagulation Discharge planning issues Possible discharge tomorrow if patient is stable on room air and ambulatory oxygen levels Subjective Date of service: 05/02/21 Principal diagnosis: Acute respiratory failure with hypoxia, bilateral pneumonia Interval history: 51 YO Female with ESRD on HD(T,R,Sa), Obesity Hypoventilation Syndrome, BrCa S/P Double Mastectomy, Coronavirus Infection diagnosed on 04/22/21 presents to ED for evaluation. Patient reports "I feel sick". Patient states that she had experienced nausea, shortness of breath, fatigue, malaise, decreased exercise tolerance fever, dry cough over the past 1 week with persistent and worsening symptoms over the same timeframe. Patient presented to her routine scheduled dialysis center today and was found to have the aforementioned symptoms. Patient referred to [facility] for further care and evaluation. Patient transported to [facility] via private vehicle for further care and evaluation of the aforementioned symptoms. The patient was seen and evaluated in the emergency department. All lab and imaging studies reviewed. The patient was found to have a fever to 103 F, as well as a pulse oximetry of 87% on room air with exertion which is consistent with acute hypoxemic respiratory failure. Chest x-ray revealed bilateral pneumonia. The patient was admitted to medical floor and initiated on pneumonia protocol as well as coronavirus protocol. Patient was also found to have end-stage renal disease in need of dialysis. Nephrology team consulted in ED. Patient denies chest pain, palpitation, skin rash, recent ill contact. Prior admission on 09/28/2020 reviewed. All medication listed at time of admission has been reconciled. 05/01/2021 Patient still very short of breath On supplemental oxygen Covid test pending 05/02/21 Covid test is positive patient is doing well on room air We will give her 24 hours and if she is stable on room air we will discharge her tomorrow . Objective - Constitutional Vitals: Vital Signs - 12hr 05/02/21 05/02/21 01:17 09:42 Respiratory 17 Rate O2 Sat by Pulse 94 99 Oximetry General appearance: Present: no acute distress, well-nourished - EENT Eyes: PERRL, EOM intact ENT: hearing intact, clear oral mucosa Ears: bilateral: normal - Neck Neck: supple, normal ROM - Respiratory Respiratory effort: normal Respiratory: bilateral: CTA - Breasts Breasts: normal - Cardiovascular Heart rate: 78 Rhythm: regular Heart Sounds: Present: S1 & S2. Absent: gallop, rub Extremities: pulses intact, No edema, normal color, Full ROM - Gastrointestinal General gastrointestinal: Present: soft, non-tender, non-distended, normal bowel sounds - Genitourinary Female genitourinary: normal - Integumentary Integumentary: clear, warm, dry - Musculoskeletal Musculoskeletal: 1, strength equal bilaterally - Neurologic Neurologic: moves all extremities - Psychiatric Psychiatric: memory intact, appropriate mood/affect, intact judgment & insight - Labs CBC & Chem 7: 05/01/21 04:33 05/01/21 04:33 Labs: Abnormal lab results 05/01/21 Range/Units 09:10 Coronavirus (PCR) Positive A (Negative)
[2021-05-02] MEDS ORDERED: CALCIUM GLUCONATE 2,000 MG in SODIUM CHLORIDE 0.9% 100 ML IV ONE (14:00)
[2021-05-02] MEDS ORDERED: SODIUM CHLORIDE 0.9% 100 ML IV PRN (16:29)
--- NOTE | 2021-05-02 16:29 | Progress Note ---
Assessment and Plan Impression: * End stage renal disease * Acute hypoxic respiratory failure * COVID 19 PNA * Hyponatremia * Anemia secondary to ESRD * Secondary hyperparathyroidism Plan: * Patient is s/p HD on Monday (missed treatment on Monday). No acute need for HD today * Resume MWF schedule tomorrow * UF as tolerated * Management of COVID 19 PNA per primary team * Dose medications for renal function * Avoid potential nephrotoxins * Epogen TIW prn * Renal diet * Will have CM confirm chair date/time as patient with COVID 19 Subjective Date of service: 05/02/21 Principal diagnosis: Acute respiratory failure with hypoxia, bilateral pneumonia Interval history: Chart, vitals, labs reviewed. Objective - Exam Narrative Exam: In effort to reduce transmission of COVID 19 in setting of pandemic, physical exam deferred. - Vital Signs Vital signs: Vital Signs - 12hr 05/02/21 05/02/21 05/02/21 05:51 09:42 12:44 Temperature 98.2 F Pulse Rate 61 Respiratory 20 Rate Blood Pressure 126/70 O2 Sat by Pulse 100 99 96 Oximetry - Lab 05/01/21 04:33 05/01/21 04:33 Most recent lab results Calcium 9.2 mg/dL (8.4-10.2) 05/01/21 04:33 Medications & Allergies - Medications Allergies/Adverse Reactions: Allergies rice Allergy (Verified 05/02/21 09:59) Unknown aspirin Adverse Reaction (Verified 04/30/21 17:57) Shortness of Breath Home Medications: Home Medications Medication Instructions Recorded Confirmed Last Taken Type Ganciclovir [Zirgan 0.15%] 1 drop OP 5XD #10 gel..gram. 04/03/20 04/30/21 02/16/21 Rx Acetaminophen [Acetaminophen TAB] 650 mg PO Q4H PRN tablet 02/27/21 04/30/21 Unknown Rx oxyCODONE /ACETAMINOPHEN [Percocet 1 tab PO Q6H PRN tablet 02/27/21 04/30/21 Unknown Rx 5/325 mg] oxyCODONE /ACETAMINOPHEN [Percocet 1 tab PO Q6HR PRN #12 tab 02/27/21 04/30/21 Unknown Rx 5/325] Active Medications: Generic Name Dose Route Start Last Admin Trade Name Freq PRN Reason Stop Dose Admin Acetaminophen 650 mg 04/30/21 17:13 Acetaminophen 325 Mg Tab PO Q4H PRN Pain MILD(1-3)/Fever >100.5/GUNDERSON Albuterol 2.5 mg 04/30/21 17:13 Albuterol 2.5 Mg/3 Ml Nebu IH Q4HRT PRN Shortness Of Breath Ascorbic Acid 500 mg 04/30/21 22:00 05/02/21 09:18 Ascorbic Acid 500 Mg Tab PO 500 mg BID NEY Administration Cholecalciferol 1,000 unit 05/01/21 10:00 05/02/21 09:18 Cholecalciferol (Vit D3) 1000 Unit (25 Mcg) Tab PO 1,000 unit DAILY NEY Administration Famotidine 10 mg 05/01/21 10:00 05/02/21 09:18 Famotidine 10 Mg Tab PO 10 mg BID NEY Administration Heparin Sodium (Porcine) 5,000 unit 04/30/21 22:00 05/02/21 09:18 Heparin 5,000 Unit/1 Ml Vial SUB-Q 5,000 unit Q12HR NEY Administration Hydromorphone HCl 0.5 mg 04/30/21 17:13 Hydromorphone 1 Mg/1 Ml Inj IV Q24H PRN Pain , Severe (7-10) Ceftriaxone Sodium 2 gm in 100 mls @ 200 mls/hr 04/30/21 18:00 05/01/21 18:07 Rocephin/Ns 2 Gm/100 Ml IV 05/04/21 18:29 Not Given Q24H NEY Protocol Azithromycin 500 mg in 250 mls @ 250 mls/hr 04/30/21 18:00 05/01/21 18:07 Zithromax/Ns IV 05/04/21 18:59 Not Given Q24H [facility] Protocol Sodium Chloride 100 mls @ 999 mls/hr 05/01/21 12:17 Nacl 0.9% IV LON PRN Hypotension Methylprednisolone Sodium Succinate 40 mg 04/30/21 22:00 05/02/21 13:54 Methylprednisolone Sod Succinate 40 Mg/1 Ml Inj IV 40 mg Q8HR NEY Administration Ondansetron HCl 4 mg 04/30/21 17:13 Ondansetron 4 Mg/2 Ml Inj IV Q8H PRN Nausea And Vomiting Oxycodone/Acetaminophen 1 tab 04/30/21 17:13 Oxycodone /Acetaminophen 5-325mg Tab PO Q12H PRN Pain, Moderate (4-6) Sodium Chloride 10 ml 04/30/21 22:00 05/02/21 09:18 Sodium Chloride 0.9% 10 Ml Flush Syringe IV 10 ml BID NEY Administration Sodium Chloride 10 ml 04/30/21 17:13 Sodium Chloride 0.9% 10 Ml Flush Syringe IV PRN PRN LINE FLUSH Zinc Sulfate 220 mg 04/30/21 22:00 05/02/21 09:18 Zinc Sulfate 220 Mg Cap PO 220 mg BID NEY Administration
[2021-05-02] MEDS: AZITHROMYCIN/NS 500 MG/250 ML 500 MG/250 ML BAG IV SCH (19:35)
[2021-05-02] MEDS: cefTRIAXone/NS 2 GM/100 ML 2 GM/100 ML BAG IV SCH (19:35)
[2021-05-03] MEDS: methylPREDNISolone Sod Succinate 40 MG/1 ML INJ IV SCH (06:21)
[2021-05-03 07:45] LABS: Hematocrit 37.4 % (30.3-42.9); Hemoglobin 12.1 gm/dl (10.1-14.3); Mean Corpuscular HGB Conc 32 % (30-34); Mean Corpuscular Volume 94 fl (79-97); Platelet Count 139 K/mm3 (140-440); Red Blood Count 3.97 M/mm3 (3.65-5.03)
[2021-05-03 07:52] LABS: Red Cell Distribution Width 20.4 % (13.2-15.2)
[2021-05-03 08:06] LABS: Albumin 3.1 g/dL (3.9-5)
[2021-05-03] MEDS: ZINC SULFATE 220 MG CAP PO SCH (09:04)
[2021-05-03] MEDS: FAMOTIDINE 10 MG TAB PO SCH (09:04)
[2021-05-03] MEDS: CHOLECALCIFEROL (VIT D3) 1000 UNIT (25 mcg) TAB PO SCH (09:04)
[2021-05-03] MEDS: ASCORBIC ACID 500 MG TAB PO SCH (09:04)
--- NOTE | 2021-05-03 09:55 | Discharge Summary ---
Providers - Providers Date of Admission: 04/30/21 17:13 Date of discharge: 05/10/21 Attending physician: ADA WEST 04/30/21 17:10 Consult to Physician [CONS] Routine Comment: Consulting Provider: JOSE M WING Physician Instructions: Reason For Exam: ESRD needing dialysis 05/02/21 12:54 Consult to Physician [CONS] Routine Comment: Consulting Provider: JUMA VANG Physician Instructions: Reason For Exam: COVID pneumonia 05/02/21 16:32 Consult to Case Management [CONS] Routine Services Needed at Discharge: Sales Training Coordinator Notified:: cm Comment:: Verify patient's dialysis clinic chair day/time (COVID +) Primary care physician: FUNERAL SERVICE APPRENTICE Hospitalization Reason for admission: Fever, nausea vomiting, and shortness of breath/COVID-19 infection Condition: Stable Pertinent studies: X-ray chest; bilateral mild patchy infiltrates/bilateral pneumonia/possible viral pneumonia Hospital course: 51 YO Female with ESRD on HD(T,R,Sa), Obesity Hypoventilation Syndrome, BrCa S/P Double Mastectomy, Coronavirus Infection diagnosed on 04/22/21 presents to ED for evaluation. Patient reports "I feel sick". Patient states that she had experienced nausea, shortness of breath, fatigue, malaise, decreased exercise tolerance fever, dry cough over the past 1 week with persistent and worsening symptoms over the same timeframe. Patient presented to her routine scheduled dialysis center today and was found to have the aforementioned symptoms. Patient referred to [facility] for further care and evaluation. Patient transported to [facility] via private vehicle for further care and evaluation of the aforementioned symptoms. The patient was seen and evaluated in the emergency department. All lab and imaging studies reviewed. The patient was found to have a fever to 103 F, as well as a pulse oximetry of 87% on room air with exertion which is consistent with acute hypoxemic respiratory failure. Chest x-ray revealed bilateral pneumonia. The patient was admitted to medical floor and initiated on pneumonia protocol as well as coronavirus protocol. Patient was also found to have end-stage renal disease in need of dialysis. Nephrology team consulted in ED. and patient received hemodialysis per schedule Patient was placed on isolation, Neil PCR test was positive, patient remained well saturated on room air 95 to 96% both resting and ambulatory Did not have hypoxia hence did not need steroids or remdesivir. However patient had bilateral pneumonia with elevated procalcitonin, and received Rocephin and Zithromax, and is being discharged on Ceftin and Zithromax for total 7 days. Patient is given all instructions of COVID-19 per guidelines to follow after discharge Advised her to follow primary care physician in 3 to 5 days, and go to the nearest emergency room should she have worsening symptoms Patient is hemodynamically and clinically stable at discharge Discharge diagnosis: --COVID-19 infection Patient has no hypoxia Does not need steroid or remdesivir Room air O2 sats more than 95 to 96% both resting and ambulatory --Bilateral pneumonia Procalcitonin high, patient is on Rocephin and Zithromax completed 3 days Continue 4 more days of Zithromax and Ceftin --ESRD (end stage renal disease) On hemodialysis per schedule Patient will follow her dialysis center per schedule --Obesity ; BMI 33.0 Advised diet modification lifestyle changes, exercise as tolerated and weight reduction when medically stable Patient is hemodynamically and clinically stable at discharge Disposition: 01 HOME / SELF CARE / HOMELESS Final Discharge Diagnosis (Prints w/discharge instructions): COVID-19 infection. No hypoxia. Bilateral pneumonia. End-stage renal disease on hemodialysis. Obesity BMI 33.0 Time spent for discharge: 35 min Core Measure Documentation - Palliative Care Palliative Care/ Comfort Measures: Not Applicable - Core Measures Any of the following diagnoses?: none Exam - Constitutional Vitals: Temp Pulse Resp BP Pulse Ox 97.8 F 58 L 20 136/86 96 05/03/21 05:06 05/03/21 05:06 05/03/21 05:06 05/03/21 05:06 05/03/21 05:06 General appearance: Present: no acute distress, well-nourished - EENT Eyes: Present: PERRL, EOM intact - Neck Neck: Present: supple, normal ROM - Respiratory Respiratory effort: normal Respiratory: bilateral: diminished, negative: rales, rhonchi, wheezing - Cardiovascular Rhythm: regular Heart Sounds: Present: S1 & S2 - Extremities Extremities: no ischemia, No edema - Abdominal General gastrointestinal: Present: soft, non-tender, non-distended, normal bowel sounds - Integumentary Integumentary: Present: clear, warm - Musculoskeletal Musculoskeletal: strength equal bilaterally - Psychiatric Psychiatric: appropriate mood/affect, cooperative - Neurologic Neurologic: CNII-XII intact, moves all extremities Plan Activity: advance as tolerated Diet: renal Additional Instructions: Advised take COVID-19 precautions and protocols per CDC guidelines as explained to you by the discharge nurse. If you have worsening symptoms contact MD or go to the nearest emergency room. Follow renal and hemodialysis per schedule,. Your oxygen numbers resting and ambulatory room air are more than 95 to 96%. No indication for home oxygen. Advised weight reduction as tolerated Follow up with: PRIMARY CAREMD [Primary Care Provider] - 3-5 Days JOSE M WING MD [Staff Physician] - 7 Days Prescriptions: cefUROXime [Ceftin] 2 tab PO Q12H #16 tablet Famotidine [Pepcid] 10 mg PO BID #30 tablet Prednisone [predniSONE 10 mg (6-Day Pack, 21 Tabs)] 10 mg PO .TAPER #1 tab.ds.pk Albuterol Mdi (or & Nicu Only) [ProAir HFA Inhaler] 2 puff IH QID PRN #8.5 gram PRN Reason: Shortness Of Breath Ascorbic Acid [Vitamin C] 500 mg PO BID #30 tablet Cholecalciferol Vit D3 [Vitamin D3 1,000 UNIT TAB] 1,000 unit PO DAILY #15 tablet Zinc Sulfate 220 mg PO BID #30 capsule Azithromycin [Zithromax TAB] 500 mg PO QDAY #4 tablet
[2021-05-03 11:07] LABS: Total Cells Counted 100
[2021-05-03 11:08] LABS: Anisocytosis 1+; Band Neutrophils # (Manual) 0.1 K/mm3; Platelet Estimate Consistent w Auto
[2021-05-03] MEDS: HEPARIN 5,000 UNIT/1 ML VIAL SUB-Q SCH (11:09)
--- NOTE | 2021-05-03 13:27 | Progress Note ---
Assessment and Plan Impression: * End stage renal disease * Acute hypoxic respiratory failure * COVID 19 PNA * Hyponatremia * Anemia secondary to ESRD * Secondary hyperparathyroidism Plan: * Patient is s/p HD on Monday (missed treatment on Monday). * HD today - MWF schedule * UF as tolerated * Management of COVID 19 PNA per primary team * Dose medications for renal function * Avoid potential nephrotoxins * Epogen TIW prn * Renal diet * CM to confirm chair date/time as patient with COVID 19 Subjective Date of service: 05/03/21 Principal diagnosis: Acute respiratory failure with hypoxia, bilateral pneumonia Interval history: Vitals reviewed I/O reviewed Plan for HD today. Objective - Exam Narrative Exam: Deferred to reduce transmission risk given Covid. Primary team exam reviewed in detail. - Vital Signs Vital signs: Vital Signs - 12hr 05/03/21 05/03/21 05/03/21 01:27 05:06 10:00 Temperature 97.8 F Pulse Rate 58 L Respiratory 18 20 Rate Blood Pressure 136/86 O2 Sat by Pulse 95 96 100 Oximetry 05/03/21 12:04 Temperature Pulse Rate Respiratory Rate Blood Pressure O2 Sat by Pulse 96 Oximetry - Lab 05/03/21 07:14 05/03/21 07:14 Most recent lab results Calcium 9.0 mg/dL (8.4-10.2) 05/03/21 07:14 Medications & Allergies - Medications Allergies/Adverse Reactions: Allergies rice Allergy (Verified 05/02/21 09:59) Unknown aspirin Adverse Reaction (Verified 04/30/21 17:57) Shortness of Breath Home Medications: Home Medications Medication Instructions Recorded Confirmed Last Taken Type Ganciclovir [Zirgan 0.15%] 1 drop OP 5XD #10 gel..gram. 04/03/20 04/30/21 02/16/21 Rx Acetaminophen [Acetaminophen TAB] 650 mg PO Q4H PRN tablet 02/27/21 04/30/21 Unknown Rx oxyCODONE /ACETAMINOPHEN [Percocet 1 tab PO Q6HR PRN #12 tab 02/27/21 04/30/21 Unknown Rx 5/325 mg] Albuterol Mdi (or & Nicu Only) 2 puff IH QID PRN #8.5 gram 05/03/21 Unknown Rx [ProAir HFA Inhaler] Ascorbic Acid [Vitamin C] 500 mg PO BID #30 tablet 05/03/21 Unknown Rx Azithromycin [Zithromax TAB] 500 mg PO QDAY #4 tablet 05/03/21 Unknown Rx Cholecalciferol Vit D3 [Vitamin D3 1,000 unit PO DAILY #15 tablet 05/03/21 Unknown Rx 1,000 UNIT TAB] Famotidine [Pepcid] 10 mg PO BID #30 tablet 05/03/21 Unknown Rx Prednisone [predniSONE 10 mg 10 mg PO .TAPER #1 tab.ds.pk 05/03/21 Unknown Rx (6-Day Pack, 21 Tabs)] Zinc Sulfate 220 mg PO BID #30 capsule 05/03/21 Unknown Rx cefUROXime [Ceftin] 2 tab PO Q12H #16 tablet 05/03/21 Unknown Rx Active Medications: Generic Name Dose Route Start Last Admin Trade Name Freq PRN Reason Stop Dose Admin Acetaminophen 650 mg 04/30/21 17:13 Acetaminophen 325 Mg Tab PO Q4H PRN Pain MILD(1-3)/Fever >100.5/GUNDERSON Albuterol 2.5 mg 04/30/21 17:13 Albuterol 2.5 Mg/3 Ml Nebu IH Q4HRT PRN Shortness Of Breath Ascorbic Acid 500 mg 04/30/21 22:00 05/03/21 09:04 Ascorbic Acid 500 Mg Tab PO 500 mg BID NEY Administration Cholecalciferol 1,000 unit 05/01/21 10:00 05/03/21 09:04 Cholecalciferol (Vit D3) 1000 Unit (25 Mcg) Tab PO 1,000 unit DAILY NEY Administration Famotidine 10 mg 05/01/21 10:00 05/03/21 09:04 Famotidine 10 Mg Tab PO 10 mg BID NEY Administration Heparin Sodium (Porcine) 5,000 unit 04/30/21 22:00 05/03/21 11:09 Heparin 5,000 Unit/1 Ml Vial SUB-Q 5,000 unit Q12HR NEY Administration Hydromorphone HCl 0.5 mg 04/30/21 17:13 Hydromorphone 1 Mg/1 Ml Inj IV Q24H PRN Pain , Severe (7-10) Ceftriaxone Sodium 2 gm in 100 mls @ 200 mls/hr 04/30/21 18:00 05/02/21 19:35 Rocephin/Ns 2 Gm/100 Ml IV 05/04/21 18:29 200 mls/hr Q24H NEY Administration Protocol Azithromycin 500 mg in 250 mls @ 250 mls/hr 04/30/21 18:00 05/02/21 19:35 Zithromax/Ns IV 05/04/21 18:59 250 mls/hr Q24H NEY Administration Protocol Sodium Chloride 100 mls @ 999 mls/hr 05/01/21 12:17 Nacl 0.9% IV LON PRN Hypotension Sodium Chloride 100 mls @ 999 mls/hr 05/02/21 16:29 Nacl 0.9% IV LON PRN Hypotension Methylprednisolone Sodium Succinate 40 mg 04/30/21 22:00 05/03/21 06:21 Methylprednisolone Sod Succinate 40 Mg/1 Ml Inj IV 40 mg Q8HR NEY Administration Ondansetron HCl 4 mg 04/30/21 17:13 Ondansetron 4 Mg/2 Ml Inj IV Q8H PRN Nausea And Vomiting Oxycodone/Acetaminophen 1 tab 04/30/21 17:13 Oxycodone /Acetaminophen 5-325mg Tab PO Q12H PRN Pain, Moderate (4-6) Sodium Chloride 10 ml 04/30/21 22:00 05/03/21 09:04 Sodium Chloride 0.9% 10 Ml Flush Syringe IV 10 ml BID NEY Administration Sodium Chloride 10 ml 04/30/21 17:13 Sodium Chloride 0.9% 10 Ml Flush Syringe IV PRN PRN LINE FLUSH Zinc Sulfate 220 mg 04/30/21 22:00 05/03/21 09:04 Zinc Sulfate 220 Mg Cap PO 220 mg BID NEY Administration
[2021-05-03 15:29] VITALS: BP 122/81
== END 2021-05-03 15:53 | disposition home or self-care (01) | DRG 177 ==
LOC: ED 15:37 → 3A 17:13
PROVIDERS: ADMIT Internal Medicine; ATTEND Internal Medicine
PROC: 5A1D70Z Performance of Urinary Filtration, Intermittent, Less than 6 Hours Per Day (ICD-10-PCS; principal; 2021-05-01)
PROC: 5A1D70Z Performance of Urinary Filtration, Intermittent, Less than 6 Hours Per Day (ICD-10-PCS; 2021-05-03)
DX: U07.1 COVID-19 (principal); N18.6 End stage renal disease; J12.82 Pneumonia due to coronavirus disease 2019; J96.01 Acute respiratory failure with hypoxia; E66.2 Morbid (severe) obesity with alveolar hypoventilation; E87.1 Hypo-osmolality and hyponatremia; N25.81 Secondary hyperparathyroidism of renal origin; R65.10 Systemic inflammatory response syndrome (SIRS) of non-infectious origin without acute organ dysfunction; Z88.6 Allergy status to analgesic agent; Z91.018 Allergy to other foods; Z85.3 Personal history of malignant neoplasm of breast; Z82.49 Family history of ischemic heart disease and other diseases of the circulatory system; Z83.3 Family history of diabetes mellitus; D63.1 Anemia in chronic kidney disease
CPT/HCPCS: 36415; 71046; 80048; 80053; 80074; 82728; 83615; 84145; 85007; 85025; 85379; 86140; 94760; G0378; J0456; J0610; J0696; J1100; J1644; J2920; U0003